=== PATIENT | female | born 1970 | race Caucasian/White ===

== ENCOUNTER 2017-07-28 19:04 | Emergency (ER) | payer BC ==
--- NOTE | 2017-07-28 20:15 | ER Document Report ---
ED Cardiac - General Chief Complaint: Shoulder Pain Stated Complaint: SHOULDER PAIN Time Seen by Provider: 07/28/17 19:58 Mode of Arrival: Ambulatory Information source: Patient - HPI Patient complains to provider of: Chest pain Notes: Patient is here with complaints of right upper chest/shoulder pain. States the pain is been present for the last 6 days. The pain is constant. She states that at times the pain gets much worse. She states that the skin in the upper right chest turned a blue color at times. She denies any shortness of breath. She denies any injury. She states that the pain is worse with touching the area. She denies abdominal pain. She denies nausea, vomiting, diarrhea. Patient does a have a prior history of a blood clotting disorder and states that she has had prior clots in her abdomen. She is currently on Brilinta and Plavix. She also has a history of A. fib and is on metoprolol for that. She denies any fever. She denies any dysuria or hematuria. She denies any numbness , tingling, weakness to the arm. She does report that she took a 16 hour bus ride from [place] to get her to see her son. She has no other complaints at this time. - Related Data Allergies/Adverse Reactions: NSAIDS (Non-Steroidal Anti-Inflamma Allergy (Verified 07/28/17 19:07) steroids Allergy (Uncoded 07/28/17 19:07) Past Medical History - Social History Smoking Status: Current Every Day Smoker Chew tobacco use (# tins/day): No Frequency of alcohol use: None Drug Abuse: None Family History: Reviewed & Not Pertinent Patient has suicidal ideation: No Patient has homicidal ideation: No Renal/ Medical History: Denies: Hx Peritoneal Dialysis Past Surgical History: Reports: Hx Abdominal Surgery - gastric bypass, Hx Appendectomy, Hx Cholecystectomy, Hx Hysterectomy, Hx Orthopedic Surgery - shoulder x2 Review of Systems - Review of Systems -: Yes All other systems reviewed and negative Physical Exam - Vital signs Vitals: Temp Pulse Resp BP Pulse Ox 98.4 F 75 18 152/81 H 98 07/28/17 19:27 07/28/17 19:27 07/28/17 19:27 07/28/17 19:27 07/28/17 19:27 - Notes Notes: GENERAL: alert, cooperative, nontoxic, no distress. HEAD: normocephalic, atraumatic EYES: conjunctiva pink without discharge, no external redness or swelling. EARS: no external swelling, no external redness NOSE: atraumatic, no external swelling MOUTH/THROAT: mucous membranes moist and pink, posterior pharynx without erythema, swelling, exudate. No trismus or drooling. NECK: soft, supple, full range of motion, no meningismus. CHEST: no distress, lungs clear and equal throughout. No wheezing, rales, rhonchi. Tenderness to palpation of the right upper anterior chest just below the clavicle. No redness or swelling identified. No mass. CARDIAC: regular rate, irregular rhythm, no murmur, normal capillary refill, normal pulses. No peripheral edema noted. ABDOMEN: Soft, nontender. BACK: full range of motion, no CVA tenderness. EXTREMITIES: full range of motion of all extremities. No redness, no swelling. NEURO: alert and oriented x 3, no focal deficits, full range of motion of all extremities. PYSCH: appropriate mood, affect. Patient is cooperative. SKIN: pink, warm, dry, no rash. Course - Re-evaluation Re-evalutation: 07/28/17 23:16 The patient is nontoxic appearing with stable vitals. Patient arrives with right upper chest wall pain is been present for the last several days. No shortness of breath. She has a heart score of 2. EKG shows no acute findings. Troponin is negative. Based on her risk factors of clotting disorders with prior DVTs and the fact that she spent several hours on a bus trip here, a CTA of the chest was ordered. This shows no acute findings per the radiologist. The pain is reproducible by palpation it seems to be superficial source of her pain. The patient will be discharged home with instructions to take Tylenol as needed for pain as she is unable to take NSAIDs due to her prior gastric bypass and her antiplatelet medication she takes on a daily basis. She was instructed to follow-up with her primary care doctor if not better in the next week, sooner for worsening pain, high fever, persistent vomiting, or for any further concerns. Symptoms are not consistent with acute ACS and she has a low heart score of 2. The patient is noted to have elevated blood pressure during today's emergency department visit. The patient was informed of this finding. The patient was instructed that this may be related to pre-hypertension and requires further evaluation with a primary care provider. The patient has no hypertensive symptoms at this time. The patient's emergency department workup and current diagnosis were explained to the patient and or family. Follow-up instructions were provided. Medications if prescribed were discussed. Instructions for when to return to the emergency department including specific worrisome symptoms were discussed with the patient and/or family. - Vital Signs Vital signs: Temp Pulse Resp BP Pulse Ox 98.4 F 75 18 152/81 H 98 07/28/17 19:27 07/28/17 19:27 07/28/17 19:27 07/28/17 19:27 07/28/17 19:27 - Laboratory Result Diagrams: 07/28/17 20:25 07/28/17 20:25 Laboratory results interpreted by me: 07/28/17 07/28/17 20:25 20:25 Hgb 11.1 L Hct 34.5 L MCV 78 L MCH 25.0 L RDW 21.9 H Chloride 108 H AST 42 H - Diagnostic Test Radiology reviewed: Image reviewed, Reports reviewed - CT of the chest with no acute findings per the radiologist. - EKG Interpretation by Me EKG shows normal: [place], Intervals, QRS Complexes, ST-T Waves Rate: Normal When compared to previous EKG there are: Other - Bigeminy. Discharge - Discharge Clinical Impression: Right-sided chest wall pain Condition: Stable Disposition: HOME, SELF-CARE Instructions: Chest Pain of Unclear Cause ([facility]), Chest Wall Pain ([facility]) Additional Instructions: Tylenol as needed for pain. Follow-up with your doctor at the next available appointment for recheck. Follow-up sooner for increasing pain, high fever, redness, difficulty breathing, persistent vomiting, or for any further concerns. Your blood pressure was elevated during today's visit. Have this rechecked with your doctor. Apply heat to your left arm where her IV infiltrated in CAT scan. Forms: Elevated Blood Pressure, Smoking Cessation Education Referrals: [facility] [Provider Group] - Follow up as needed
[2017-07-28 20:46] LABS: ABSOLUTE BASOPHILS # (AUTO) 0.1 10^3/uL (0.0-0.2); ABSOLUTE EOSINOPHILS # (AUTO) 0.1 10^3/uL (0.0-0.6); ABSOLUTE LYMPHOCYTES (AUTO) 3.5 10^3/uL (0.5-4.7); ABSOLUTE MONOCYTES (AUTO) 0.7 10^3/uL (0.1-1.4); ABSOLUTE NEUT (AUTO) 5.5 10^3/uL (1.7-8.2); BASOPHILS % (AUTO) 1.4 % (0-2); HEMATOCRIT 34.5 % (36.0-47.0); HEMOGLOBIN 11.1 g/dL (12.0-15.5); LYMPHOCYTES % (AUTO) 35.4 % (13-45); MEAN CORPUSCULAR HGB CONC 32.1 g/dL (32.0-36.0); MEAN CORPUSCULAR VOLUME 78 fl (80-97); MONOCYTES % (AUTO) 6.7 % (3-13); PLATELET COUNT 234 10^3/uL (150-450); RED BLOOD COUNT 4.42 10^6/uL (3.72-5.28); RED CELL DISTRIBUTION WIDTH 21.9 % (11.5-14.0); SEGMENTED NEUTROPHILS % (AUTO) 55.5 % (42-78); TOTAL CELLS COUNTED % (AUTO) 100 %; WHITE BLOOD COUNT 9.9 10^3/uL (4.0-10.5)
[2017-07-28 20:51] LABS: INTERNATIONAL RATION (INR) 0.91; PROTHROMBIN TIME 12.9 SEC (11.4-15.4)
[2017-07-28 21:08] LABS: ALANINE AMINOTRANSFERASE 25 U/L (9-52); ALBUMIN 4.1 g/dL (3.5-5.0); ALKALINE PHOSPHATASE 97 U/L (38-126); ANION GAP 7 (5-19); ASPARTATE AMINO TRANSFERASE 42 U/L (14-36); BILIRUBIN,DIRECT 0.4 mg/dL (0.0-0.4); BILIRUBIN,TOTAL 0.4 mg/dL (0.2-1.3); BLOOD UREA NITROGEN 12 mg/dL (7-20); CALCIUM 8.9 mg/dL (8.4-10.2); CARBON DIOXIDE 28 mmol/L (22-30); CHLORIDE 108 mmol/L (98-107); GLUCOSE 87 mg/dL (75-110); POTASSIUM 3.6 mmol/L (3.6-5.0); TOTAL PROTEIN 7.6 g/dL (6.3-8.2)
--- NOTE | 2017-07-28 22:20 | RADIOLOGY REPORT (SQ) ---
EXAM DESCRIPTION: CTA CHEST COMPLETED DATE/TIME: 07/28/2017 9:46 pm REASON FOR STUDY: right upper cp, hx of dvt COMPARISON: None. TECHNIQUE: CT scan of the chest performed using helical scanning technique with dynamic intravenous contrast injection. Images reviewed with lung, soft tissue and bone windows. Reconstructed coronal and sagittal MPR images reviewed. Additional 3 dimensional post-processing performed to develop Maximal Intensity Projection images (NC P). All images stored on PACS. All CT scanners at this facility use dose modulation, iterative reconstruction, and/or weight based d osing when appropriate to reduce radiation dose to as low as reasonably achievable (ALARA). [facility]: Dose Right [facility]: CareDose [facility]: Dose Right [facility]: Teradose 4D [facility]: Ribbon CONTRAST TYPE AND DOSE: contrast/concentration: Isovue 370.00 mg/ml; Total Contrast Delivered: 138.0 ml; Total Saline Delivered: 45.0 ml Contrast bolus optimized for the pulmonary arteries. Not diagnostic for the aorta. RENAL FUNCTION: BUN 12 creatinine 0.9 RADIATION DOSE: CT Rad equipment meets quality standard of care and radiation dose reduction techniq ues were employed. CTDIvol: 13.9 mGy. DLP: 474 mGy-cm. . LIMITATIONS: None. FINDINGS: LUNGS AND PLEURA: No masses, infiltrates, pneumothorax. No pleural effusions, calcificati ons. AORTA AND GREAT VESSELS: No aneurysm. Contrast bolus not optimized for the aorta. HEART: No pericardial effusion. No significant coronary artery calcifications. PULMONARY ARTERIES: No emboli visualized in the main pulmonary arteries or the segmental branches. HILAR AND MEDIASTINAL STRUCTURES: No identified masses or abnormal nodes. HARDWARE: None in the chest. UPPER ABDOMEN: No significant findings. Limited exam. THYROID AND OTHER SOFT TISSUES: No masses. No adenopathy. BONES: No acute or significant finding. 3D MIPS: Confirm above findings. OTHER: No other significant finding. IMPRESSION: NORMAL CTA OF THE CHEST. NO PULMONARY EMBOLI. COMMENT: Quality ID # [id number]: Final reports with documentation of one or more dose reduction techniques (e.g., Automated exposure control, adjustment of the mA and/or kV according to patient size, use of iterative reconstruction technique) TECHNICAL DOCUMENTATION: JOB ID: [id number] [employer]- All Rights Reserved Reading location - IP/workstation name: [email or web address]
[2017-07-28] MEDS ORDERED: DEXAMETHASONE SOD PHOS INJ 10 MG/1 ML VIAL IV ONE (23:15)
[2017-07-28 23:41] VITALS: BP 120/80
--- NOTE | 2017-07-29 08:15 | EKG REPORT ---
SEVERITY:- ABNORMAL ECG - SINUS RHYTHM SUPRAVENTRICULAR BIGEMINY : Confirmed by: Kennedy Goode MD 29-Jul-2017 08:14:55
== END 2017-07-28 22:30 | disposition home or self-care (01) ==
LOC: ER 19:04
DX: M25.511 Pain in right shoulder (principal); R07.89 Other chest pain; F17.200 Nicotine dependence, unspecified, uncomplicated; Z98.84 Bariatric surgery status; Z90.49 Acquired absence of other specified parts of digestive tract; Z90.710 Acquired absence of both cervix and uterus
CPT/HCPCS: 93005; 99284; 96374; 36415; 85025; 85610; 85730; 80053; 84484; 71275; 93010; J1100

== ENCOUNTER 2017-10-07 11:47 | Inpatient (IN) | payer MEDICARE ==
--- NOTE | 2017-10-07 12:21 | ER Document Report ---
ED Medical Screen (RME) - General Chief Complaint: Shortness Of Breath Stated Complaint: SHORTNESS OF BREATH,NAUSEA Time Seen by Provider: 10/07/17 12:09 Notes: RAPID MEDICAL EVALUATION DISCLOSURE I have seen this patient as part of a Rapid Medical Evaluation and, if applicable, placed any initially appropriate orders. The patient will be seen and fully evaluated, including a full history and physical exam, by a provider ( in Main ED or Fast Track) when a room becomes available. 47-year-old female PMH atrial fibrillation CAD PE here with complaints of extremity swelling in both arms and legs over the past few days as well as shortness of breath that developed this morning. She reports that yesterday her hands were swollen "the size of sausage" but that this has resolved however the leg swelling bilaterally persists. She denies any chest pain discomfort tightness but reports shortness of breath is severe. She denies any prior history of congestive heart failure and does not take any diuretics. She reports being diagnosed with PE back in May despite being on Plavix for the past 2 years. She was diagnosed at hospital in [place] where she lives. She was placed on Brilinta in addition to Plavix and a repeat CTA chest revealed resolution of the PE however she has not been on the Brilinta since the end of July and is back to taking just the Plavix. She is worried she may have another blood clot. EXAM Very subtle and scant bibasilar rales Regular rate with irregular rhythm Lower extremity pitting edema bilaterally Do not appreciate any hand edema TRAVEL OUTSIDE OF THE [place] IN LAST 30 DAYS: No - Related Data Allergies/Adverse Reactions: ciprofloxacin [From Cipro] Allergy (Verified 10/07/17 12:09) NSAIDS (Non-Steroidal Anti-Inflamma Allergy (Verified 10/07/17 12:09) steroids Allergy (Uncoded 10/07/17 12:09) Past Medical History - Social History Chew tobacco use (# tins/day): No Frequency of alcohol use: None Drug Abuse: None - Past Medical History Cardiac Medical History: Reports: Hx Atrial Fibrillation, Hx Heart Attack Renal/ Medical History: Denies: Hx Peritoneal Dialysis Past Surgical History: Reports: Hx Abdominal Surgery - gastric bypass, Hx Appendectomy, Hx Cholecystectomy, Hx Hysterectomy, Hx Orthopedic Surgery - shoulder x2, implant in back Physical Exam - Vital signs Vitals: Temp Pulse Resp BP Pulse Ox 97.4 F 96 22 H 126/91 H 100 10/07/17 12:00 10/07/17 12:00 10/07/17 12:00 10/07/17 12:00 10/07/17 12:00 Course - Vital Signs Vital signs: Temp Pulse Resp BP Pulse Ox 97.4 F 96 22 H 126/91 H 100 10/07/17 12:00 10/07/17 12:00 10/07/17 12:00 10/07/17 12:00 10/07/17 12:00
[2017-10-07 13:35] LABS: ABSOLUTE BASOPHILS # (AUTO) 0.1 10^3/uL (0.0-0.2); ABSOLUTE LYMPHOCYTES (AUTO) 1.6 10^3/uL (0.5-4.7); ABSOLUTE MONOCYTES (AUTO) 0.6 10^3/uL (0.1-1.4); ABSOLUTE NEUT (AUTO) 5.4 10^3/uL (1.7-8.2); BASOPHILS % (AUTO) 0.9 % (0-2); EOSINOPHILS % (AUTO) 0.6 % (0-6); HEMATOCRIT 30.7 % (36.0-47.0); HEMOGLOBIN 9.9 g/dL (12.0-15.5); LYMPHOCYTES % (AUTO) 21.3 % (13-45); MEAN CORPUSCULAR HEMOGLOBIN 24.6 pg (27.0-33.4); MEAN CORPUSCULAR HGB CONC 32.2 g/dL (32.0-36.0); MEAN CORPUSCULAR VOLUME 77 fl (80-97); MONOCYTES % (AUTO) 7.2 % (3-13); PLATELET COUNT 278 10^3/uL (150-450); RED BLOOD COUNT 4.01 10^6/uL (3.72-5.28); RED CELL DISTRIBUTION WIDTH 20.9 % (11.5-14.0); TOTAL CELLS COUNTED % (AUTO) 100 %; WHITE BLOOD COUNT 7.7 10^3/uL (4.0-10.5)
--- NOTE | 2017-10-07 13:40 | ER Document Report ---
ED General - General Chief Complaint: Shortness Of Breath Stated Complaint: SHORTNESS OF BREATH,NAUSEA Time Seen by Provider: 10/07/17 12:09 Mode of Arrival: Ambulatory Information source: Patient TRAVEL OUTSIDE OF THE [place] IN LAST 30 DAYS: No - HPI Notes: 47-year-old female with a past medical history of atrial fibrillation, SD and PE in 2018, pi 2 clotting disorder, bipolar with manic depression who is on anticoagulation of Plavix and recently taken off of Lovenox presents to the emergency room today for complaints of increased shortness of breath with bilateral leg swelling that started approximately 2 days ago after getting up from the flight from [place]. Reports shortness of breath that comes and goes. Patient reports calf pain is bilateral. Denies history of heart failure. Patient does not have a medical provider in the area as she is just visiting from [place]. Patient is currently on Plavix for anticoagulation. Patient is a pack a day smoker for the last 32 years. Denies fevers, chills, chest pain,palpitations, nausea, vomiting, diarrhea, abdominal pain, hematuria, blurred vision, double vision, loss of vision, speech changes, LH, dizziness, syncope, headaches, wheezing, ST, URI, neck pain, weakness, bowel or bladder dysfunction, saddle anesthesia, numbness or tingling in bilateral upper or lower extremities equally, muscle paralysis, weakness in bilateral upper or lower extremities equally or rash. Denies IV drug use. - Related Data Allergies/Adverse Reactions: ciprofloxacin [From Cipro] Allergy (Verified 10/07/17 12:09) NSAIDS (Non-Steroidal Anti-Inflamma Allergy (Verified 10/07/17 12:09) steroids Allergy (Uncoded 10/07/17 12:09) Past Medical History - General Information source: Patient - Social History Smoking Status: Current Every Day Smoker Chew tobacco use (# tins/day): No Frequency of alcohol use: None Drug Abuse: None Family History: Reviewed & Not Pertinent Patient has suicidal ideation: No Patient has homicidal ideation: No - Past Medical History Cardiac Medical History: Reports: Hx Atrial Fibrillation, Hx Heart Attack Renal/ Medical History: Denies: Hx Peritoneal Dialysis Past Surgical History: Reports: Hx Abdominal Surgery - gastric bypass, Hx Appendectomy, Hx Cholecystectomy, Hx Hysterectomy, Hx Orthopedic Surgery - shoulder x2, implant in back Review of Systems - Review of Systems Constitutional: No symptoms reported EENT: No symptoms reported Cardiovascular: See HPI Respiratory: No symptoms reported Gastrointestinal: No symptoms reported Genitourinary: No symptoms reported Female Genitourinary: No symptoms reported Musculoskeletal: No symptoms reported Skin: No symptoms reported Hematologic/Lymphatic: No symptoms reported Neurological/Psychological: No symptoms reported Physical Exam - Vital signs Vitals: Temp Pulse Resp BP Pulse Ox 97.4 F 96 22 H 126/91 H 100 10/07/17 12:00 10/07/17 12:00 10/07/17 12:00 10/07/17 12:00 10/07/17 12:00 - Notes Notes: PHYSICAL EXAMINATION: GENERAL: Chronically ill-appearing, well-nourished and in no acute distress. HEAD: Atraumatic, normocephalic. EYES: Pupils equal round and reactive to light, extraocular movements intact, conjunctiva are normal. ENT: Nares patent, oropharynx clear without exudates. Moist mucous membranes. NECK: Normal range of motion, supple without lymphadenopathy LUNGS: breath sounds clear to auscultation bilaterally and equal. No wheezes rales or rhonchi. HEART: Regular rate and rhythm without murmurs ABDOMEN: Soft, nontender, nondistended abdomen. No guarding, no rebound. No masses appreciated. Female : deferred Musculoskeletal: Normal range of motion, no pitting or edema. No cyanosis. bilaterally calf swelling equally. negative loren's sign. anterior and posterior drawer test negative.Dtr + 2 in BLE. Full motor and sensory function. no ecchymosis or abrasions noted. distal pulses + 2 bilaterally and equally. Bilateral lower extremity without deformity or asymmetry. No STS or edema. No overlying erythema, warmth, discoloration. No lesions or break in the skin integrity. No evidence of compartment syndrome, lymphadenopathy, gangrene. No palpable cords or evidence of thrombophlebitis. IF HAD THROMBO: possible superficial thrombophlebitis with palpable, tender cords. NEUROLOGICAL: Cranial nerves grossly intact. Normal speech, normal gait. Normal sensory, motor exams PSYCH: Normal mood, normal affect. SKIN: Warm, Dry, normal turgor, no rashes or lesions noted. Course - Re-evaluation Re-evalutation: 10/07/17 18:07 47-year-old female presents for evaluation of shortness of breath and bilateral calf swelling. CTA negative for any acute thorax or pneumonia. Lateral venous ultrasound negative for DVT. CBC negative for leukocytosis, BNP 1130, creatinine unremarkable. Patient given 40 mg IVP of Lasix. potassium 3.9. Cardiac enzymes unremarkable. EKG shows non-STEMI. Patient in sinus rhythm with nonspecific T abnormalities. At 1700, patient reports she had sudden onset left-sided chest pain without radiation into the jaw shoulder, patient given 0.4 nitroglycerin 2 with relief. EKG unchanged. Second set of cardiac enzymes negative. Consulted with Dr. Grant Aquino, hospitalist for admission due new onset CHF with chest pain and was somewhat relieved with nitroglycerin. Will be admitted to hospitalist service on the telemetry floor. For further evaluation and management of CHF with unstable angina 10/07/17 18:16 - Vital Signs Vital signs: Temp Pulse Resp BP Pulse Ox 98.7 F 96 16 137/75 H 100 10/07/17 17:31 10/07/17 12:00 10/07/17 17:31 10/07/17 17:31 10/07/17 17:31 - Laboratory Result Diagrams: 10/07/17 13:18 10/07/17 13:18 Laboratory results interpreted by me: 10/07/17 10/07/17 10/07/17 13:18 13:18 13:18 Hgb 9.9 L Hct 30.7 L MCV 77 L MCH 24.6 L RDW 20.9 H Sodium 148.7 H Chloride 110 H NT-Pro-B Natriuret Pep 1130 H Discharge - Discharge Clinical Impression: Chest pain at rest, Unstable angina Congestive heart failure Qualifiers: Heart failure type: unspecified Heart failure chronicity: acute Qualified Code( s): I50.9 - Heart failure, unspecified Condition: Good Disposition: ADMITTED INPATIENT Admitting Provider: Hospitalist - Dr. Grant Aquino Unit Admitted: Telemetry
[2017-10-07 14:08] LABS: INTERNATIONAL RATION (INR) 0.88; PARTIAL THROMBOPLASTIN TIME 29.8 SEC (23.5-35.8); PROTHROMBIN TIME 12.4 SEC (11.4-15.4)
[2017-10-07 14:12] LABS: ANION GAP 9 (5-19); BLOOD UREA NITROGEN 14 mg/dL (7-20); CARBON DIOXIDE 30 mmol/L (22-30); CHLORIDE 110 mmol/L (98-107); GLUCOSE 83 mg/dL (75-110); POTASSIUM 3.9 mmol/L (3.6-5.0); SODIUM 148.7 mmol/L (137-145)
[2017-10-07 14:24] LABS: NT PRO BNP 1130 pg/mL (<125); TROPONIN I < 0.012 ng/mL
--- NOTE | 2017-10-07 14:31 | RADIOLOGY REPORT (SQ) ---
EXAM DESCRIPTION: CTA CHEST COMPLETED DATE/TIME: 10/07/2017 2:12 pm REASON FOR STUDY: SOB; eval PE shortness of breath, history of pulmonary emboli in the past COMPARISON: CT angio chest 07/28/2017 TECHNIQUE: CT scan of the chest performed using helical scanning technique with dynamic intravenous contrast injection. Images reviewed with lung, soft tissue and bone windows. Reconstructed coronal and sagittal MPR images reviewed. Additional 3 dimensional post-processing performed to develop Maximal Intensity Projection images ([place] P). All images stored on PACS. All CT scanners at this facility use dose modulation, iterative reconstruction, and/or weight based d osing when appropriate to reduce radiation dose to as low as reasonably achievable (ALARA). [facility]: Dose Right [facility]: CareDose [facility]: Dose Right [facility]: Teradose 4D [facility]: [email or web address] CONTRAST TYPE AND DOSE: contrast/concentration: Isovue 370.00 mg/ml; Total Contrast Delivered: 80.0 ml; Total Saline Delivered: 90.0 ml Contrast bolus optimized for the pulmonary arteries. Not diagnostic for the aorta. RENAL FUNCTION: None required. The patient is less than 50 years old. RADIATION DOSE: CT Rad equipment meets quality standard of care and radiation dose reduction techniq ues were employed. CTDIvol: 18.3 - 33.1 mGy. DLP: 688 mGy-cm. . LIMITATIONS: None. FINDINGS: LUNGS AND PLEURA: Very mild increased interstitial markings with thickened interlobular se investigation division captain around the periphery of the right and left upper lobe, right middle lobe, and periphery of the ri ght lower lobe. This raises a question of mild interstitial lung disease or sarcoidosis. This patte rn is similar compared to prior CT angio chest 07/28/2017. Findings were discussed with Dr. Medina in the emergency room. No acute infiltrates. No pleural effusion. No pneumothorax. AORTA AND GREAT VESSELS: No aneurysm. Contrast bolus not optimized for the aorta. HEART: No pericardial effusion. No significant coronary artery calcifications. PULMONARY ARTERIES: No emboli visualized in the main pulmonary arteries or the segmental branches. HILAR AND MEDIASTINAL STRUCTURES: There are mildly enlarged right hilar lymph nodes, 1.7 x 1.4 cm in size and 1.8 x 0.9 cm in size. HARDWARE: Dorsal column stimulator over the mid thoracic spine. UPPER ABDOMEN: Post gastric bypass THYROID AND OTHER SOFT TISSUES: No masses. No adenopathy. BONES: No acute or significant finding. 3D MIPS: Confirm above findings. OTHER: No other significant finding. IMPRESSION: No CT angio evidence of acute pulmonary emboli. No acute infiltrates. Mild increased interstitial markings right greater than left with mild right hilar adenopathy. Quest ion sarcoidosis or other interstitial lung disease. COMMENT: Quality ID # [id number]: Final reports with documentation of one or more dose reduction techniques (e.g., Automated exposure control, adjustment of the mA and/or kV according to patient size, use of iterative reconstruction technique) TECHNICAL DOCUMENTATION: JOB ID: [id number] [employer]- All Rights Reserved Reading location - IP/workstation name: [email or web address]
[2017-10-07] MEDS ORDERED: FUROSEMIDE INJ/PF 40 MG/4 ML SDV IV ONE (15:54)
--- NOTE | 2017-10-07 16:00 | RADIOLOGY REPORT (SQ) ---
EXAM DESCRIPTION: VENOUS BILATERAL LOWER COMPLETED DATE/TIME: 10/07/2017 3:50 pm REASON FOR STUDY: calf swelling/tenderness,+hx of PE,clotting disord COMPARISON: None. TECHNIQUE: Dynamic and static bender scale and color images acquired of both lower extremity venous sy stems. Selected spectral images acquired with additional compression and augmentation maneuvers. Imag es stored on PACS. LIMITATIONS: None. FINDINGS: RIGHT LEG COMMON FEMORAL AND FEMORAL: Normal phasicity, compression and augmentation. No visualized echogenic m aterial on bender scale. No defects on color images. POPLITEAL: Normal compression and augmentation. No visualized echogenic material on bender scale. No de fects on color images. CALF VESSELS: Normal compression and augmentation. No visualized echogenic material on bender scale. No defects on color image. GSV AND SSV: Normal compression. No visualized echogenic material on bender scale. No defects on color images. ANY DEEP VENOUS INSUFFICIENCY: No ANY EVIDENCE OF POPLITEAL CYST: No. OTHER: No other significant finding. LEFT LEG COMMON FEMORAL AND FEMORAL: Normal phasicity, compression and augmentation. No visualized echogenic m aterial on bender scale. No defects on color images. POPLITEAL: Normal compression and augmentation. No visualized echogenic material on bender scale. No de fects on color images. CALF VESSELS: Normal compression and augmentation. No visualized echogenic material on bender scale. No defects on color images. GSV AND SSV: Normal compression. No visualized echogenic material on bender scale. No defects on color images. ANY DEEP VENOUS INSUFFICIENCY: No ANY EVIDENCE POPLITEAL CYST: No. OTHER: No other significant finding. IMPRESSION: NO EVIDENCE DVT OR SVT IN EITHER LEG. TECHNICAL DOCUMENTATION: JOB ID: [id number] [employer]- All Rights Reserved Reading location - IP/workstation name: [email or web address]
[2017-10-07] MEDS: NITROGLYCERIN 0.4 MG/TAB 25 TAB/BOTTLE SL PRN ×2 (16:19→16:25)
[2017-10-07] MEDS ORDERED: MORPHINE SULFATE 10 MG/ML INJ IV ONE (17:06)
[2017-10-07] MEDS ORDERED: NITROGLYCERIN 0.4 MG/TAB 25 TAB/BOTTLE SL PRN (17:06)
[2017-10-07 17:17] LABS: CREATINE KINASE MB 0.77 ng/mL (<4.55); TROPONIN I < 0.012 ng/mL
[2017-10-07] MEDS ORDERED: MAG HYDROX/AL HYDROX/SIMETH SUSP 30 ML UDCUP PO PRN (17:31)
[2017-10-07] MEDS ORDERED: IPRATROPIUM/ALBUTEROL 0.5-2.5 MG/3 ML AMPUL NEB PRN (17:31)
[2017-10-07] MEDS ORDERED: ONDANSETRON HCL INJ/PF 4 MG/2 ML SDV IV PRN (17:31)
[2017-10-07] MEDS ORDERED: MAGNESIUM HYDROXIDE SUSP 30 ML UDCUP PO PRN (17:31)
[2017-10-07] MEDS ORDERED: NITROGLYCERIN 2% OINTMENT 1 GM PACKET TP ONE (18:00)
--- NOTE | 2017-10-07 18:27 | PDOC H&P ---
History of Present Illness Admission Date/PCP: 10/07/17 17:55 Patient complains of: Leg swelling and difficulty breathing for a few days History of Present Illness: ANA LAURA DOTSON is a 47 year old female This patient presents to the emergency room with history of bilateral leg swelling. She states she flew here from [place] and noticed her legs to be swollen which she thought was due to her flight. She however says that she started having difficulty breathing also and so decided to come to the emergency room to get it checked out. While in the emergency room she started having some chest pain and had difficulty laying down when she was trying to have a CAT scan done. She was grabbing the side of the chest saying that this chest pain was right there however about the time of my exam she was chest pain- free. Patient states she has a prior history of coronary artery disease. She states she had a heart attack 10 years ago and had another one this May. She states that she was put on Plavix however she states she never had a stress test done and has never had a cardiac cath done. Patient's history is a little bit disjointed and its little difficult to really follow was going on here. She however was found to have an elevated BNP.. She was given some GI cocktail which appeared to have given her some relief when I stated earlier this patient' s story is a little disjointed so it is hard to separate the facts from all the extra stuff. He is a prior history of atrial fibrillation and says she is on metoprolol but has never been on an anticoagulant She does have a history of bipolar disorder which may explain some of her storytelling. Patient definitely does have some abnormal EKG findings including premature atrial complexes and PVCs as well as nonspecific T-wave changes. 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 [place] Past Medical History Cardiac Medical History: Reports: Atrial Fibrillation, Myocardial Infarction Psychiatric Medical History: Reports: Bipolar Disorder Past Surgical History Past Surgical History: Reports: Appendectomy, Cholecystectomy, Hysterectomy, Orthopedic Surgery - shoulder x2, implant in back Social History Smoking Status: Current Every Day Smoker - Advance Directive Resuscitation Status: Full Code Family History Family History: Reviewed & Not Pertinent Parental Family History Reviewed: Yes Children Family History Reviewed: Yes Sibling(s) Family History Reviewed.: Yes Medication/Allergy Allergies/Adverse Reactions: ciprofloxacin [From Cipro] Allergy (Verified 10/07/17 12:09) NSAIDS (Non-Steroidal Anti-Inflamma Allergy (Verified 10/07/17 12:09) steroids Allergy (Uncoded 10/07/17 12:09) Review of Systems Constitutional: ABSENT: chills, fever(s), headache(s), weight gain, weight loss Eyes: ABSENT: visual disturbances Ears: ABSENT: hearing changes Cardiovascular: PRESENT: chest pain, edema, orthropnea, palpitations. ABSENT: dyspnea on exertion Respiratory: PRESENT: dyspnea. ABSENT: cough, hemoptysis, sputum Gastrointestinal: ABSENT: abdominal pain, constipation, diarrhea, hematemesis, hematochezia, nausea, vomiting Genitourinary: ABSENT: dysuria, hematuria Musculoskeletal: ABSENT: joint swelling Integumentary: ABSENT: rash, wounds Neurological: ABSENT: abnormal gait, abnormal speech, confusion, dizziness, focal weakness, syncope Psychiatric: ABSENT: anxiety, depression, homidical ideation, suicidal ideation Endocrine: ABSENT: cold intolerance, heat intolerance, polydipsia, polyuria Hematologic/Lymphatic: ABSENT: easy bleeding, easy bruising Physical Exam Vital Signs: Temp Pulse Resp BP Pulse Ox 98.7 F 96 16 137/75 H 100 10/07/17 17:31 10/07/17 12:00 10/07/17 17:31 10/07/17 17:31 10/07/17 17:31 General appearance: PRESENT: no acute distress, well-developed, well-nourished Head exam: PRESENT: atraumatic, normocephalic Eye exam: PRESENT: conjunctiva pink, EOMI, PERRLA. ABSENT: scleral icterus Ear exam: PRESENT: normal external ear exam Mouth exam: PRESENT: moist, tongue midline Neck exam: ABSENT: carotid bruit, JVD, lymphadenopathy, thyromegaly Respiratory exam: PRESENT: clear to auscultation [place]. ABSENT: rales, rhonchi, wheezes Cardiovascular exam: PRESENT: irregular rhythm, +S1, +S2. ABSENT: diastolic murmur, rubs, systolic murmur Pulses: PRESENT: normal dorsalis pedis pul Vascular exam: PRESENT: normal capillary refill GI/Abdominal exam: PRESENT: normal bowel sounds, soft. ABSENT: distended, guarding, mass, organolmegaly, rebound, tenderness Rectal exam: PRESENT: deferred Extremities exam: PRESENT: full ROM. ABSENT: calf tenderness, clubbing, pedal edema Neurological exam: PRESENT: alert, awake, oriented to person, oriented to place , oriented to time, oriented to situation, CN II-XII grossly intact. ABSENT: motor sensory deficit Psychiatric exam: PRESENT: appropriate affect. ABSENT: homicidal ideation, suicidal ideation Skin exam: PRESENT: dry, intact, warm. ABSENT: cyanosis, rash Results Laboratory Results: Laboratory 10/07/17 10/07/17 10/07/17 13:18 13:18 13:18 WBC 7.7 RBC 4.01 Hgb 9.9 L Hct 30.7 L MCV 77 L MCH 24.6 L MCHC 32.2 RDW 20.9 H Plt Count 278 Seg Neutrophils % 70.0 Lymphocytes % 21.3 Monocytes % 7.2 Eosinophils % 0.6 Basophils % 0.9 Absolute Neutrophils 5.4 Absolute Lymphocytes 1.6 Absolute Monocytes 0.6 Absolute Eosinophils 0.0 Absolute Basophils 0.1 PT INR APTT Sodium 148.7 H Potassium 3.9 Chloride 110 H Carbon Dioxide 30 Anion Gap 9 BUN 14 Creatinine 0.75 Est GFR ( Amer) > 60 Est GFR (Non-Af Amer) > 60 Glucose 83 Calcium 9.0 Creatine Kinase CK-MB (CK-2) Troponin I < 0.012 NT-Pro-B Natriuret Pep 1130 H 10/07/17 10/07/17 10/07/17 13:18 13:18 13:18 WBC RBC Hgb Hct MCV MCH MCHC RDW Plt Count Seg Neutrophils % Lymphocytes % Monocytes % Eosinophils % Basophils % Absolute Neutrophils Absolute Lymphocytes Absolute Monocytes Absolute Eosinophils Absolute Basophils PT 12.4 INR 0.88 APTT 29.8 Sodium Potassium Chloride Carbon Dioxide Anion Gap BUN Creatinine Est GFR ( Amer) Est GFR (Non-Af Amer) Glucose Calcium Creatine Kinase 95 CK-MB (CK-2) 0.89 Troponin I NT-Pro-B Natriuret Pep 10/07/17 10/07/17 16:32 16:32 WBC RBC Hgb Hct MCV MCH MCHC RDW Plt Count Seg Neutrophils % Lymphocytes % Monocytes % Eosinophils % Basophils % Absolute Neutrophils Absolute Lymphocytes Absolute Monocytes Absolute Eosinophils Absolute Basophils PT INR APTT Sodium Potassium Chloride Carbon Dioxide Anion Gap BUN Creatinine Est GFR ( Amer) Est GFR (Non-Af Amer) Glucose Calcium Creatine Kinase 80 CK-MB (CK-2) 0.77 Troponin I < 0.012 NT-Pro-B Natriuret Pep Impressions: Chest/Abdomen CTA 10/07/17 12:16 IMPRESSION: No CT angio evidence of acute pulmonary emboli. No acute infiltrates. Mild increased interstitial markings right greater than left with mild right hilar adenopathy. Question sarcoidosis or other interstitial lung disease. Venous Doppler Study 10/07/17 13:25 IMPRESSION: NO EVIDENCE DVT OR SVT IN EITHER LEG. Assessment & Plan - Diagnosis (1) Congestive heart failure Qualifiers: Heart failure type: unspecified Heart failure chronicity: acute Qualified Code(s): I50.9 - Heart failure, unspecified Plan: A two-dimensional echocardiogram will be ordered and cardiology evaluation. Patient will be placed on Nitropaste as well as Lasix in the interim (2) Abnormal EKG Is this a current diagnosis for this admission?: Yes Plan: Premature atrial contractions as well as PVCs. Patient will be monitored on telemetry floor. A cardiac consultation will be obtained (3) Bipolar disorder Is this a current diagnosis for this admission?: Yes Plan: Details unknown however this was self-reported by patient herself (4) Atrial fibrillation Qualifiers: Atrial fibrillation type: paroxysmal Qualified Code(s): I48.0 - Paroxysmal atrial fibrillation Is this a current diagnosis for this admission?: Yes Plan: According to patient she does have a history of atrial fibrillation currently on no anticoagulant (5) Chest pain at rest Is this a current diagnosis for this admission?: Yes Plan: This is somewhat atypical and she may will need to stress test however will defer that for now. Serial cardiac enzymes will be obtained and will have cardiology evaluation to decide what the next step (6) Anemia Qualifiers: Anemia type: unspecified type Qualified Code(s): D64.9 - Anemia, unspecified Is this a current diagnosis for this admission?: Yes Plan: We will obtain iron studies - Time Time Spent: 30 to 50 Minutes Medications reviewed and adjusted accordingly: Yes Anticipated discharge: Home Within: within 72 hours - Inpatient Certification Based on my medical assessment, after consideration of the patient's comorbidities, presenting symptoms, or acuity I expect that the services needed warrant INPATIENT care.: Yes Medical Necessity: Need For Continuous Telemetry Monitoring
[2017-10-07] MEDS ORDERED: ENOXAPARIN SODIUM INJ 40 MG/0.4 ML DISP.SYRIN SUBCUT ONE (18:30)
--- NOTE | 2017-10-07 18:40 | EKG REPORT ---
SEVERITY:- ABNORMAL ECG - SINUS RHYTHM MULTIPLE ATRIAL PREMATURE COMPLEXES PROBABLE LEFT ATRIAL ABNORMALITY NONSPECIFIC T ABNORMALITIES, LATERAL LEADS : Confirmed by: Kennedy Goode MD 07-Oct-2017 18:39:30
--- NOTE | 2017-10-07 18:40 | EKG REPORT ---
SEVERITY:- ABNORMAL ECG - SINUS RHYTHM PACS AND PVCS SINUS PAUSE/ARREST WITH ATRIAL ESCAPE PROBABLE LEFT ATRIAL ABNORMALITY : Confirmed by: Kennedy Goode MD 07-Oct-2017 18:39:15
--- NOTE | 2017-10-07 18:40 | EKG REPORT ---
SEVERITY:- ABNORMAL ECG - SINUS RHYTHM MULTIPLE ATRIAL PREMATURE COMPLEXES : Confirmed by: Kennedy Goode MD 07-Oct-2017 18:39:41
[2017-10-07] MEDS ORDERED: FUROSEMIDE INJ/PF 40 MG/4 ML SDV IV SCH (22:00)
[2017-10-07] MEDS: OXYCODONE-ACETAMINOPHEN 5-325 MG TABLET PO PRN (23:02)
[2017-10-08] MEDS: ACETAMINOPHEN 325 MG TABLET PO PRN ×3 (00:03→12:28)
[2017-10-08 05:08] LABS: ABSOLUTE RETICS # 0.054 10^6/uL (0.028-0.122); RETICULOCYTE COUNT (AUTO) 1.43 % (0.66-2.85)
[2017-10-08 05:22] LABS: IRON(TIBC) 21.1 ug/dL (37-170)
[2017-10-08 05:59] LABS: FERRITIN 6.61 ng/mL (6.2-137.0)
[2017-10-08 06:30] LABS: FOLATE 4.13 ng/mL (>2.76)
[2017-10-08] MEDS: OXYCODONE-ACETAMINOPHEN 5-325 MG TABLET PO PRN ×3 (07:20→20:31)
[2017-10-08] MEDS: FUROSEMIDE INJ/PF 40 MG/4 ML SDV IV SCH ×2 (09:31→20:31)
[2017-10-08] MEDS ORDERED: ENOXAPARIN SODIUM INJ 40 MG/0.4 ML DISP.SYRIN SUBCUT SCH (10:00)
--- NOTE | 2017-10-08 12:57 | PDOC CONSULTATION ---
Consultation Consult Date: 10/07/17 Attending physician:: WAQAS CRAWFORD Consult reason:: Chest pain and dyspnea History of Present Illness Admission Date/PCP: 10/07/17 17:55 Patient complains of: Shortness of breath and pedal edema History of Present Illness: ANA LAURA DOTSON is a 47 year old female presents to the emergency room with history of bilateral leg swelling. She states she flew here from [place] and noticed her legs to be swollen which she thought was due to her flight. She however says that she started having difficulty breathing also and so decided to come to the emergency room to get it checked out. While in the emergency room she started having some chest pain and had difficulty laying down when she was trying to have a CAT scan done. She was grabbing the side of the chest saying that this chest pain was right there however about the time of my exam she was chest pain-free. Patient states she has a prior history of coronary artery disease. She states she had a heart attack 10 years ago and had another one this May. She states that she was put on Plavix however she states she never had a stress test done and has never had a cardiac cath done. Patient's history is a little bit disjointed and its little difficult to really follow was going on here. She however was found to have an elevated BNP.. She was given some GI cocktail which appeared to have given her some relief when I stated earlier this patient's story is a little disjointed so it is hard to separate the facts from all the extra stuff. He is a prior history of atrial fibrillation and says she is on metoprolol but has never been on an anticoagulant She does have a history of bipolar disorder which may explain some of her storytelling. Patient definitely does have some abnormal EKG findings including premature atrial complexes and PVCs as well as nonspecific T-wave changes. 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 This history obtained by the hospitalist was reviewed with the patient and confirmed. Patient's [id number] also at bedside. Patient actually flew in from [facility] to be with her son and [id number]. She has plans to stay for about a month. Patient admits to being somewhat noncompliant with medications. Past Medical History Cardiac Medical History: Reports: Atrial Fibrillation, Myocardial Infarction Psychiatric Medical History: Reports: Bipolar Disorder Past Surgical History Past Surgical History: Reports: Appendectomy, Cholecystectomy, Hysterectomy, Orthopedic Surgery - shoulder x2, implant in back Social History Information Source: Patient Smoking Status: Current Every Day Smoker - Advance Directive Resuscitation Status: Full Code Surrogate healthcare decision maker:: Patient's son is the surrogate decision-maker. Family History Family History: Hypertension Parental Family History Reviewed: Yes Children Family History Reviewed: Yes Sibling(s) Family History Reviewed.: Yes Medication/Allergy Home Medications: Alprazolam [Xanax] 2 mg PO Q8HP PRN 10/07/17 Gabapentin [Neurontin 400 mg Capsule] 400 mg PO Q12 10/07/17 Hydrocodone/Acetaminophen [Hydrocodone-Acetamin 5-325 mg] 1 tab PO Q12 10/07/17 Metoprolol Tartrate [Lopressor 25 mg Tablet] 25 mg PO Q12 10/07/17 Mirtazapine [Remeron] 30 mg PO QHS 10/07/17 Omeprazole 40 mg PO QHS 10/07/17 Pantoprazole Sodium [Protonix] 40 mg PO DAILY 10/07/17 Zolpidem Tartrate [Ambien] 10 mg PO HSP PRN 10/07/17 Allergies/Adverse Reactions: ciprofloxacin [From Cipro] Allergy (Verified 10/07/17 12:09) NSAIDS (Non-Steroidal Anti-Inflamma Allergy (Verified 10/07/17 12:09) steroids Allergy (Uncoded 10/07/17 12:09) Review of Systems Review of Systems: Please see history of present illness and past medical history as wall. Constitutional: No fever or chills reported. Head : No recent chronic headaches, recent head injury. Eyes: No recent eye pain, diplopia, redness, discharge, acute visual changes. Ears: No recent chronic ear pain, acute hearing loss, ear discharge. Oral cavity: No recent ulcerations, bleeding, oral cavity discomfort. Neck: No recent acute neck pain reported. Hematologic: No recent easy bruising or bleeding. Lymphatic: No recent lymph node enlargement reported. Cardiovascular system review: See history of present illness. Respiratory system review: No hemoptysis or blood clots in the lungs reported. Pedal edema and shortness of breath on exertion Gastrointestinal system review: Negative for any recent acute hematemesis, melena. Genitourinary system review: No recent acute or chronic hematuria, flank pain, UTI etc. reported. Skin system review: Negative for any recent abnormal bruising, no rash, no pruritus reported. Neurologic: No prior history of strokes, mini strokes, seizure disorder. Psychologic: No history of major psychosis or major depression reported. Describes history of minor depression. Musculoskeletal: Minor aches and pains reported. No acute joint swelling reported. Endocrine: No recent polyuria, polydipsia, recent heat or cold intolerance. Physical Exam Vital Signs: Temp Pulse Resp BP Pulse Ox 98.6 F 96 24 H 143/95 H 98 10/07/17 19:49 10/07/17 12:00 10/07/17 19:32 10/07/17 19:15 10/07/17 19:32 Results EKG Comments: Twelve-lead EKG shows sinus rhythm, no acute ST-T wave changes noted but frequent APCs and VPCs noted. Impressions: Chest/Abdomen CTA 10/07/17 12:16 IMPRESSION: No CT angio evidence of acute pulmonary emboli. No acute infiltrates. Mild increased interstitial markings right greater than left with mild right hilar adenopathy. Question sarcoidosis or other interstitial lung disease. Venous Doppler Study 10/07/17 13:25 IMPRESSION: NO EVIDENCE DVT OR SVT IN EITHER LEG. Assessment & Plan - Diagnosis (1) Chest pain at rest Is this a current diagnosis for this admission?: Yes (3) Coronary artery disease Qualifiers: Coronary Disease-Associated Artery/Lesion type: [place] artery [place] vs. transplanted heart: [place] heart Is this a current diagnosis for this admission?: Yes (4) Obesity Qualifiers: Obesity type: unspecified obesity type Obesity classification: unspecified obesity classification Is this a current diagnosis for this admission?: Yes (5) Abnormal EKG Is this a current diagnosis for this admission?: Yes (6) Anemia Qualifiers: Anemia type: unspecified type Qualified Code(s): D64.9 - Anemia, unspecified Is this a current diagnosis for this admission?: Yes (7) Congestive heart failure Qualifiers: Heart failure type: unspecified Heart failure chronicity: acute Qualified Code(s): I50.9 - Heart failure, unspecified Is this a current diagnosis for this admission?: Yes - Notes Notes: Twelve-lead EKG shows sinus rhythm with increased APCs and VPCs. No acute ST-T wave changes noted. Chest pain: Cardiac enzymes so far has been negative. Electrocardiogram did not show any definitive ST segment changes. Multiple differential diagnoses exist in this patient. Patient has known history of CAD and prior UT. Feel that it would need to be evaluated further. Discussed evaluation to assess this. In this regard risk benefits of nuclear stress test and other alternative processes were discussed in detail. The patient prefers to undergo nuclear stress test. Congestive heart failure: Most likely related to diastolic dysfunction but currently unspecified. This is most likely also acute on chronic. A 2D echocardiogram has been ordered. Agree with IV diuretics for the time being. Will adjust medication further after echo report. CAD: Recommend antiplatelet statin and beta-keiko therapy. To be gradually reinstituted during this admission. Obesity: Patient has been encouraged in weight loss. Abnormal EKG: To be evaluated with a 2D echo and nuclear stress test. Corrected needle electrolyte problem because of increased ectopy. Anemia: Hemoglobin is low. To be evaluated further by the hospitalist or can be evaluated as an outpatient. - Time Time Spent: 30 to 50 Minutes - CODE STATUS was discussed, patient remains full code. Surrogate decision-maker patient's son Rylan Flowers. Multiple medical problems were addressed. More than 50% of the time spent coordinating care, discussing management plans with involved caregivers. Management plans discussed with involved personnels. Medical decision making was of moderate to high complexity, patient's has multiple comorbidities. Medications reviewed and adjusted accordingly: Yes
--- NOTE | 2017-10-08 14:16 | PDOC PROGRESS REPORT ---
Subjective Progress Note for:: 10/08/17 Subjective:: I seen patient propped up in bed. She is awake alert and oriented and she is in mild respiratory distress. If she remains stable, maybe she is a potential discharge for tomorrow Reason For Visit: ATYPICAL CHEST PAIN,CHF Physical Exam Vital Signs: Temp Pulse Resp BP Pulse Ox 98.1 F 52 L 18 127/63 H 98 10/08/17 07:18 10/08/17 12:30 10/08/17 12:30 10/08/17 07:18 10/08/17 12:30 Intake & Output 10/07/17 10/08/17 10/09/17 06:59 06:59 06:59 Intake Total 1285 Balance 1285 Weight 95.9 kg General appearance: PRESENT: mild distress Head exam: PRESENT: atraumatic, normocephalic Eye exam: PRESENT: conjunctiva pink, EOMI, PERRLA. ABSENT: scleral icterus Respiratory exam: PRESENT: crackles - Fine crackles at the lung bases Cardiovascular exam: PRESENT: irregular rhythm GI/Abdominal exam: PRESENT: normal bowel sounds, soft. ABSENT: distended, guarding, mass, organolmegaly, rebound, tenderness Extremities exam: PRESENT: +2 edema Neurological exam: PRESENT: alert, awake, oriented to time, oriented to situation Psychiatric exam: PRESENT: appropriate affect, normal mood. ABSENT: homicidal ideation, suicidal ideation Results Laboratory Results: 10/08/17 10/08/17 04:30 04:30 Retic Count (auto) 1.43 Absolute Retic 0.054 Iron 21.1 L TIBC 431 % Saturation 5 Ferritin 6.61 Vitamin B12 215.0 L Folate 4.13 10/08/17 04:30 Troponin I < 0.012 Impressions: Chest/Abdomen CTA 10/07/17 12:16 IMPRESSION: No CT angio evidence of acute pulmonary emboli. No acute infiltrates. Mild increased interstitial markings right greater than left with mild right hilar adenopathy. Question sarcoidosis or other interstitial lung disease. Venous Doppler Study 10/07/17 13:25 IMPRESSION: NO EVIDENCE DVT OR SVT IN EITHER LEG. Assessment & Plan - Diagnosis (1) Abnormal EKG Is this a current diagnosis for this admission?: Yes Plan: Patient is being followed by Dr. Reese (2) Bipolar disorder Qualifiers: Active/Remission status: in remission of unspecified degree Qualified Code( s): F31.70 - Bipolar disorder, currently in remission, most recent episode unspecified Is this a current diagnosis for this admission?: Yes Plan: Continue her home medication (3) Chest pain at rest Is this a current diagnosis for this admission?: Yes Plan: Has resolved (4) Congestive heart failure Qualifiers: Heart failure type: unspecified Heart failure chronicity: acute Qualified Code(s): I50.9 - Heart failure, unspecified Is this a current diagnosis for this admission?: Yes Plan: Patient has been on Lasix and cardiac protective medications. (5) Coronary artery disease Qualifiers: Coronary Disease-Associated Artery/Lesion type: [place] artery [place] vs. transplanted heart: [place] heart Is this a current diagnosis for this admission?: Yes Plan: Currently stable. Continue her home medications. - Time Time Spent with patient: 35 or more minutes
[2017-10-08] MEDS ORDERED: CARVEDILOL 12.5 MG TABLET PO ONE (15:00)
[2017-10-08] MEDS ORDERED: LOSARTAN POTASSIUM 25 MG TABLET PO ONE (15:00)
[2017-10-08] MEDS: LOSARTAN POTASSIUM 25 MG TABLET PO SCH (17:46)
[2017-10-08] MEDS: APIXABAN 5 MG TABLET PO SCH (17:46)
[2017-10-08] MEDS: CARVEDILOL 12.5 MG TABLET PO SCH (17:46)
[2017-10-08] MEDS ORDERED: ALPRAZOLAM 0.5 MG TABLET PO PRN (18:05)
--- NOTE | 2017-10-08 19:12 | XCELERA REPORT ---
[address] [address] Transthoracic Echocardiogram Report Name: ANA LAURA DOTSON Age: 47 yrs Gender: Female : 1970 Patient Status: Inpatient Patient Location: [address] [place] [address] Study Date: 10/08/2017 09:56 AM Height: 65 in Weight: 216 lb BSA: 2.0 m2 Procedure: A complete two-dimensional transthoracic echocardiogram was performed (2D, M-mode, spectral and color flow Doppler). The study was technically adequate with some images being suboptimal in quality. Reason For Study: CHF Ordering Physician: SHINE MURGUIA Performed By: Diane Pozo Interpretation Summary The left ventricular ejection fraction is normal. There is borderline concentric left ventricular hypertrophy. The left ventricle is grossly normal size. Doppler measurements suggest pseudonormalized left ventricular relaxation, which is associated with grade II/IV or mild to moderate diastolic dysfunction Wall motion cannot be accurately commented on, but no definite regional wall motion abnormalities noted. The right ventricular systolic function is normal. The left atrium is mildly dilated. The right atrium is normal in size There is a trace amount of mitral regurgitation There is no mitral valve stenosis. No aortic regurgitation is present. There is no aortic valve stenosis There is a trace to mild amount of tricuspid regurgitation Right ventricular systolic pressure is estimated to be elevated at 30- 40mmHg. There is mild pulmonary hypertension by echo The aortic root is not well visualized but is probably normal size. The inferior vena cava appeared normal and decreased > 50% with respiration (RAP 5-10 mmHg) There is no pericardial effusion. MMode/2D Measurements & Calculations RVDd: 2.3 cm LVIDd: 5.7 cm FS: 35.8 % Ao root diam: 3.5 cm IVSd: 0.89 cm LVIDs: 3.7 cm EDV(Teich): 162.1 ml LVPWd: 0.88 cmESV(Teich): 57.5 ml Ao root area: 9.4 cm2 EF(Teich): 64.6 % LA dimension: 3.8 cm LVOT diam: 2.0 cm LVOT area: 3.2 cm2 Doppler Measurements & Calculations MV E max amanda: MV P1/2t max amanda: Ao V2 max: LV V1 max P.6 cm/sec 108.6 cm/sec 125.0 cm/sec 5.5 mmHg MV A max amanda: MV P1/2t: 68.4 msec Ao max PG: LV V1 max: 43.4 cm/sec MVA(P1/2t): 3.2 cm2 6.2 mmHg 116.8 cm/sec MV E/A: 2.5 MV dec slope: SAMMI(V,D): 3.0 cm2 465.1 cm/sec2 PA V2 max: TR max amanda: 79.5 cm/sec 271.5 cm/sec PA max PG: TR max P.5 mmHg 2.5 mmHg Left Ventricle The left ventricle is grossly normal size. There is borderline concentric left ventricular hypertrophy. The left ventricular ejection fraction is normal. Doppler measurements suggest pseudonormalized left ventricular relaxation, which is associated with grade II/IV or mild to moderate diastolic dysfunction. Wall motion cannot be accurately commented on, but no definite regional wall motion abnormalities noted. Right Ventricle The right ventricle is grossly normal size. There is normal right ventricular wall thickness. The right ventricular systolic function is normal. Atria The right atrium is normal in size. The left atrium is mildly dilated. Interarterial septum not well visualized and not well dopplered. Cannot comment on ASD/PFO presence. Mitral Valve The mitral valve is grossly normal. There is no mitral valve stenosis. There is a trace amount of mitral regurgitation. Aortic Valve The aortic valve is grossly normal. There is no aortic valve stenosis. No aortic regurgitation is present. Tricuspid Valve The tricuspid valve is not well visualized, but is grossly normal. There is no tricuspid stenosis. There is a trace to mild amount of tricuspid regurgitation. Right ventricular systolic pressure is estimated to be elevated at 30-40mmHg. There is mild pulmonary hypertension by echo. Pulmonic Valve The pulmonic valve is not well visualized. Great Vessels The aortic root is not well visualized but is probably normal size. The inferior vena cava appeared normal and decreased > 50% with respiration (RAP 5-10 mmHg). Effusions There is no pericardial effusion. : SHINE MURGUIA > Mervat Reese
[2017-10-08] MEDS ORDERED: CARVEDILOL 12.5 MG TABLET PO SCH (22:00)
[2017-10-08] MEDS ORDERED: LOSARTAN POTASSIUM 25 MG TABLET PO SCH (22:00)
[2017-10-09 05:57] LABS: CHOLESTEROL 231.63 mg/dL (0-200); TRIGLYCERIDES 124 mg/dL (<150)
[2017-10-09 06:08] LABS: DIRECT LDL 141 mg/dL (<100)
[2017-10-09] MEDS: OXYCODONE-ACETAMINOPHEN 5-325 MG TABLET PO PRN ×2 (06:14→13:07)
[2017-10-09] MEDS: LOSARTAN POTASSIUM 25 MG TABLET PO SCH (06:15)
[2017-10-09] MEDS: CARVEDILOL 12.5 MG TABLET PO SCH (06:15)
[2017-10-09] MEDS: FUROSEMIDE INJ/PF 40 MG/4 ML SDV IV SCH (09:24)
[2017-10-09] MEDS: APIXABAN 5 MG TABLET PO SCH (09:24)
[2017-10-09] MEDS: ACETAMINOPHEN 325 MG TABLET PO PRN (11:10)
--- NOTE | 2017-10-09 11:11 | PDOC PROGRESS REPORT ---
Subjective Progress Note for:: 10/08/17 Subjective:: Patient seems to be doing better with gradual improvement. Pt is denying any chest arm or neck discomfort. Patient denying any PND, orthopnea. Patient denied any sustained palpitations, dizziness, syncope, near syncope. Patient denying any fever chills. Patient denying any other significant discomfort. Patient is maintaining sinus rhythm. Review of systems: Rest review of systems negative. Medications: Medications have been reviewed. Reason For Visit: ATYPICAL CHEST PAIN,CHF Physical Exam Vital Signs: Temp Pulse Resp BP Pulse Ox 98.1 F 52 L 18 127/63 H 98 10/08/17 07:18 10/08/17 12:30 10/08/17 12:30 10/08/17 07:18 10/08/17 12:30 Intake & Output 10/07/17 10/08/17 10/09/17 06:59 06:59 06:59 Intake Total 1285 Balance 1285 Weight 95.9 kg Exam: GENERAL: well-nourished and in no acute distress. Alert and oriented x3 HEAD: Atraumatic, normocephalic. EYES: Pupils equal round and reactive to light, extraocular movements intact, sclera anicteric, conjunctiva are normal. ENT: TMs normal, nares patent, oropharynx clear without exudates. Moist mucous membranes. No oral ulcerations or bleeding gums noted NECK: supple without lymphadenopathy. Trachea is central. No cervical or axillary lymphadenopathy noted. Carotids are 2+, JVD WNL LUNGS: Respiration seems nonlabored, no significant accessory muscle action noted. Breath sounds clear to auscultation bilaterally and equal noted. No wheezes rales or rhonchi noted. No significant dullness noted on percussion. CHEST: Palpation of the chest wall shows no significant chest wall tenderness. 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 ABDOMEN: Soft, no significant tenderness appreciated, normoactive bowel sounds. No guarding, no rebound. No rigidity noted . No masses appreciated. EXTREMITIES: Pedal pulses are 1-2+, no calf tenderness noted. No clubbing or cyanosis. 1+ pedal edema noted NEUROLOGICAL: Focused neurological exam showed no significant neurologic deficit. Normal speech, no focal weakness appreciated. PSYCH: Normal mood, normal affect. Judgment and insight within normal limits. SKIN: No significant ecchymosis, skin is noted to be warm. MUSCULOSKELETAL EXAM: No significant acute joint swelling noted. Results Laboratory Results: 10/08/17 10/08/17 04:30 04:30 Retic Count (auto) 1.43 Absolute Retic 0.054 Iron 21.1 L TIBC 431 % Saturation 5 Ferritin 6.61 Vitamin B12 215.0 L Folate 4.13 10/08/17 04:30 Troponin I < 0.012 EKG Comments: Telemetry strips reviewed. No significant cardiac dysrhythmia noted. Impressions: Chest/Abdomen CTA 10/07/17 12:16 IMPRESSION: No CT angio evidence of acute pulmonary emboli. No acute infiltrates. Mild increased interstitial markings right greater than left with mild right hilar adenopathy. Question sarcoidosis or other interstitial lung disease. Venous Doppler Study 10/07/17 13:25 IMPRESSION: NO EVIDENCE DVT OR SVT IN EITHER LEG. Assessment & Plan - Diagnosis (1) Chest pain at rest Is this a current diagnosis for this admission?: Yes (3) Coronary artery disease Qualifiers: Coronary Disease-Associated Artery/Lesion type: [place] artery [place] vs. transplanted heart: [place] heart Is this a current diagnosis for this admission?: Yes (4) Obesity Qualifiers: Obesity type: unspecified obesity type Obesity classification: unspecified obesity classification Is this a current diagnosis for this admission?: Yes (5) Abnormal EKG Is this a current diagnosis for this admission?: Yes (6) Anemia Qualifiers: Anemia type: unspecified type Qualified Code(s): D64.9 - Anemia, unspecified Is this a current diagnosis for this admission?: Yes (7) Congestive heart failure Qualifiers: Heart failure type: unspecified Heart failure chronicity: acute Qualified Code(s): I50.9 - Heart failure, unspecified Is this a current diagnosis for this admission?: Yes - Notes Notes: 2D echo preliminary results shows normal LVEF. Will schedule patient for a nuclear stress test for tomorrow. 2D echo results were reviewed with the patient. Patient questions were answered. 2D echo also showed no significant valvular abnormalities. Diastolic dysfunction noted. Mild pulmonary hypertension noted. Chest pain: Cardiac enzymes so far has been negative. Electrocardiogram did not show any definitive ST segment changes. Multiple differential diagnoses exist in this patient. Patient has known history of CAD and prior TN. Feel that it would need to be evaluated further. Discussed evaluation to assess this. In this regard risk benefits of nuclear stress test and other alternative processes were discussed in detail. The patient prefers to undergo nuclear stress test. Congestive heart failure: Most likely related to diastolic dysfunction but currently unspecified. This is most likely also acute on chronic. 2D echo shows normal LVEF. CHF therefore from diastolic dysfunction. CAD: Recommend antiplatelet statin and beta-keiko therapy. To be gradually reinstituted during this admission. Obesity: Patient has been encouraged in weight loss. Abnormal EKG: To be evaluated with a 2D echo and nuclear stress test. 2D echo results reviewed. Nuclear stress test pending for tomorrow. Maintain electrolyte within normal limits. Anemia: Hemoglobin is low. To be evaluated further by the hospitalist or can be evaluated as an outpatient. Currently noted to be deficient in B12 and iron.. - Time Time with patient: Greater than 35 minutes - Risk benefits of nuclear stress test discussed. CODE STATUS was discussed, patient remains full code. Surrogate decision-maker patient's son. Multiple medical problems were addressed. More than 50% of the time spent coordinating care, discussing management plans with involved caregivers. Management plans discussed with involved personnels. Medical decision making was of moderate to high complexity , patient's has multiple comorbidities. Medications reviewed and adjusted accordingly: Yes
[2017-10-09] MEDS ORDERED: REGADENOSON INJ 0.4 MG/5 ML DISP.SYRIN IV ONE (12:00)
--- NOTE | 2017-10-09 14:14 | DRAGON STRESS TEST REPORT ---
INTRAVENOUS LEXISCAN CARDIOLITE STRESS TEST USING SINGLE PHOTON EMMISION COMPUTERIZED TOMOGRAPHIC. DATE OF PROCEDURE: October 09, 2017, INDICATION : Chest pain CARDIAC RISK FACTORS: Patient with known history of CAD, CHF RESTING EKG: Sinus rhythm without any baseline ST-T wave changes noted STRESS EKG: No significant ST segment changes noted with LexiScan bolus REASON FOR TERMINATION: Protocol. PROCEDURE REPORT: Baseline heart rate 83 beats per minute with blood pressure of 99/69. Patient had no significant complaints. Patient was bolused with Lexiscan 0.4 mg intravenously followed by saline bolus. Heart rate at 2 minutes post bolus 98 with a blood pressure of 113/70. 3 minutes post bolus heart rate 94 with blood pressure of 111/69. No significant EKG changes were noted. Patient had no significant complaints during the procedure or postprocedure. Patient injected with Aminophyllin 75 mg at 3 minutes or later after Lexiscan bolus. CONCLUSIONS: Normal EKG and hemodynamic response to IV LexiScan. NUCLEAR DATA: At rest the patient was given 14.15 millicuries of technetium 99 sestamibi injected intravenously. As per protocol rest gated SPECT images were obtained. On day of stress test, the patient was given intravenous LexiScan at a dose of 0.4 mg in 5 mL intravenously, followed by flush with normal saline. Subsequently the stress dose of 42.2 millicuries of technetium 99 sestamibi was injected intravenously. As per protocol stress gated images were obtained. NUCLEAR INTERPRETATION: Both raw and processed data were used for interpretation. Visual, qualitative, computer-generated quantitative data was used. There was good myocardial uptake of technetium compound. Motion artifact and soft tissue attenuations were noted. Increased visceral uptake was noted. No definitive areas of transient perfusion defect noted, No definitive areas of fixed perfusion defect or scars noted. EKG gated imaging showed LV EF at 50 %, rest and stress gated EF similar visually. T. I D. ratio was 1.12. Lung heart ratio noted to be within normal limits 0.32. No significant extracardiac and abnormal radiotracer activities were noted. RV free wall uptake was noted to be WNL. IMPRESSION: Also refer to comments under nuclear interpretation. Also test results needs to be interpreted in the context of pretest probability. 1. No definitive areas of transient perfusion defect noted. 2. There is no definitive scintigraphic evidence of myocardial infarction/scar. 3. EKG gated imaging shows left ventricular ejection fraction of approx. 50 %. 4. Clinical correlation requested as occasionally single vessel disease or balanced ischemia could be missed. In approximately 10% of the cases Lexiscan may not cause adequate vasodilatory stress. RECOMMENDATIONS: Aggressive risk factor modification and medical management. Further evaluation may be needed if continued symptoms or other high risk indicators are noted on clinical evaluation. Close cardiology follow-up is also recommended. Clinical correlation with echocardiogram derived ejection fraction. Inability to exercise by itself can lead to increased cardiovascular event risks. Consider cardiology consultation and or follow-up if clinically indicated. I am available for cardiology evaluation and consultation if requested by the nuclear equipment operator, unless patient already has a three knife trimmer. TAN
[2017-10-09 15:43] VITALS: BP 134/77
--- NOTE | 2017-10-09 16:03 | PDOC DISCHARGE SUMMARY ---
General - Admit/Disc Date/PCP Admission Date/Primary Care Provider: 10/07/17 17:55 Discharge Date: 10/09/17 - Discharge Diagnosis (1) Abnormal EKG Is this a current diagnosis for this admission?: Yes (2) Bipolar disorder Is this a current diagnosis for this admission?: Yes (3) Chest pain at rest Is this a current diagnosis for this admission?: Yes (4) Congestive heart failure Is this a current diagnosis for this admission?: Yes (5) Coronary artery disease Is this a current diagnosis for this admission?: Yes (6) Anemia Is this a current diagnosis for this admission?: Yes (7) Atrial fibrillation Is this a current diagnosis for this admission?: Yes - Additional Information Resuscitation Status: Full Code Discharge Diet: Cardiac Discharge Activity: Activity As Tolerated, Balance Activity w/Rest, Weigh Daily Prescriptions: Apixaban [Eliquis 5 mg Tablet] 5 mg PO BID 60 Days tablet Atorvastatin Calcium [Lipitor 40 mg Tablet] 40 mg PO QHS #30 tablet Carvedilol [Coreg 12.5 mg Tablet] 12.5 mg PO Q12 #60 tablet Cyanocobalamin (Vitamin B-12) [B-12] 1,000 mcg PO DAILY 30 Days #30 tablet.er Furosemide [Lasix 40 mg Tablet] 40 mg PO QAM #30 tablet Lisinopril 5 mg PO DAILY #30 tablet Home Medications: Alprazolam [Xanax] 2 mg PO Q8HP PRN 10/07/17 Gabapentin [Neurontin 400 mg Capsule] 400 mg PO Q12 10/07/17 Hydrocodone/Acetaminophen [Hydrocodone-Acetamin 5-325 mg] 1 tab PO Q12 10/07/17 Mirtazapine [Remeron] 30 mg PO QHS 10/07/17 Omeprazole 40 mg PO QHS 10/07/17 Pantoprazole Sodium [Protonix] 40 mg PO DAILY 10/07/17 Zolpidem Tartrate [Ambien] 10 mg PO HSP PRN 10/07/17 Apixaban [Eliquis 5 mg Tablet] 5 mg PO BID 60 Days tablet 10/09/17 Atorvastatin Calcium [Lipitor 40 mg Tablet] 40 mg PO QHS #30 tablet 10/09/17 Carvedilol [Coreg 12.5 mg Tablet] 12.5 mg PO Q12 #60 tablet 05/25/18 Cyanocobalamin (Vitamin B-12) [B-12] 1,000 mcg PO DAILY 30 Days #30 tablet.er Furosemide [Lasix 40 mg Tablet] 40 mg PO QAM #30 tablet 10/09/17 Lisinopril 5 mg PO DAILY #30 tablet 10/09/17 History of Present Illness History of Present Illness: ANA LAURA DOTSON is a 47 year old female his patient presents to the emergency room with history of bilateral leg swelling. She states she flew here from [place] and noticed her legs to be swollen which she thought was due to her flight. She however says that she started having difficulty breathing also and so decided to come to the emergency room to get it checked out. While in the emergency room she started having some chest pain and had difficulty laying down when she was trying to have a CAT scan done. She was grabbing the side of the chest saying that this chest pain was right there however about the time of my exam she was chest pain- free. Patient states she has a prior history of coronary artery disease. She states she had a heart attack 10 years ago and had another one this May. She states that she was put on Plavix however she states she never had a stress test done and has never had a cardiac cath done. Patient's history is a little bit disjointed and its little difficult to really follow was going on here. She however was found to have an elevated BNP.. She was given some GI cocktail which appeared to have given her some relief when I stated earlier this patient' s story is a little disjointed so it is hard to separate the facts from all the extra stuff. He is a prior history of atrial fibrillation and says she is on metoprolol but has never been on an anticoagulant She does have a history of bipolar disorder which may explain some of her storytelling. Patient definitely does have some abnormal EKG findings including premature atrial complexes and PVCs as well as nonspecific T-wave changes. She has no local manager card as she is from a [facility] Hospital Course: Patient has been managed with Lasix for her congestive heart failure and for her chest pain she has been on nitroglycerin and Percocet. Patient remained chest pain-free throughout her stay. Patient also subjected to echocardiogram which revealed grade 2 diastolic dysfunction. Her cardiac stress test is negative. Her anemia workup shows low iron but total iron binding capacity saturation and ferritin are within normal limits. A 2 occasions her B12 found to be low and patient discharged with p.o. cyanocobalamin. Today on the day of discharge on physical examination I found the patient sitting by the bedside she is awake alert oriented and she is very eager to go home. Her vital signs are within normal limits her labs are stable and patient is to be discharged. I will continue all her home medication except I switched her metoprolol to Coreg. Added also for Eliquis for atrial fibrillation and Lipitor for hyperlipidemia and lisinopril for her congestive heart failure. End of dictation I spent 35 minutes to coordinate this discharge. Physical Exam Vital Signs: Temp Pulse Resp BP Pulse Ox 97.3 F 67 15 128/66 H 100 10/09/17 12:23 10/09/17 14:18 10/09/17 14:18 10/09/17 12:23 10/09/17 12:23 Intake & Output 10/08/17 10/09/17 10/10/17 06:59 06:59 06:59 Intake Total 1285 1524 Balance 1285 1524 Weight 95.9 kg 92.8 kg General appearance: PRESENT: no acute distress Head exam: PRESENT: atraumatic, normocephalic Ear exam: PRESENT: normal external ear exam Neck exam: ABSENT: carotid bruit, JVD, lymphadenopathy, thyromegaly Respiratory exam: PRESENT: clear to auscultation [place]. ABSENT: rales, rhonchi, wheezes Cardiovascular exam: PRESENT: RRR. ABSENT: diastolic murmur, rubs, systolic murmur GI/Abdominal exam: PRESENT: normal bowel sounds, soft. ABSENT: distended, guarding, mass, organolmegaly, rebound, tenderness Neurological exam: PRESENT: alert, awake, oriented to person, oriented to place , oriented to time, oriented to situation, CN II-XII grossly intact. ABSENT: motor sensory deficit Psychiatric exam: PRESENT: normal mood Results Laboratory Results: 10/09/17 04:35 Triglycerides 124 Cholesterol 231.63 H LDL Cholesterol Direct 141 H VLDL Cholesterol 25.0 HDL Cholesterol 56 Vitamin B12 235.0 L 10/08/17 04:30 Troponin I < 0.012 Impressions: Chest/Abdomen CTA 10/07/17 12:16 IMPRESSION: No CT angio evidence of acute pulmonary emboli. No acute infiltrates. Mild increased interstitial markings right greater than left with mild right hilar adenopathy. Question sarcoidosis or other interstitial lung disease. Venous Doppler Study 10/07/17 13:25 IMPRESSION: NO EVIDENCE DVT OR SVT IN EITHER LEG. Qualifiers - * PATIENT BEING DISCHARGED WITH ANY OF THE FOLLOWING DIAGNOSIS: Heart Failure VTE patient discharged on overlapping Therapy?: No Reason(s) for not prescribing Overlap Therapy:: Not indicated Stroke Pt being discharged on Anti-thrombolytic therapy?: No Reason(s) for not prescribing Anti-thrombolytic therapy:: Not indicated Stroke Pt being discharged on Anti-coagulation therapy?: No Reason(s) for not prescribing Anti-coagulation therapy:: Not indicated Stroke Pt being discharged on Statins?: No Reason(s) for not prescribing Statins therapy:: Not indicated DE Pt being discharged on Aspirin therapy?: No Reason(s) for not prescribing Aspirin therapy:: Not indicated DE Pt being discharged on Statins?: No Reason(s) for not prescribing Statin therapy:: Not indicated DE Pt discharged ACEI/ARBS?: No Reason(s) for not prescribing ACEI/ARBS:: Not indicated HF Pt being discharged on ACEI for LVEF less than 40%?: Yes HF Pt being discharged on ARBS for LVEF less than 40%?: No Reason(s) for not prescribing ARBS:: Not indicated HF Pt with Afib discharged with Warfarin?: No Reason(s) for not prescribing Warfarin:: Not indicated HF Pt discharged on evidence-based Beta Jacky:: Yes
--- NOTE | 2017-10-09 20:42 | PDOC PROGRESS REPORT ---
Subjective Progress Note for:: 10/09/17 Subjective:: Patient seems to be doing better. Pt is denying any chest arm or neck discomfort. Patient denying any PND, orthopnea. Patient denied any sustained palpitations, dizziness, syncope, near syncope. Patient denying any fever chills. Patient denying any other significant discomfort. Patient is maintaining sinus rhythm. In the morning nuclear stress test procedure, risk benefits were discussed in detail. Informed consent was obtained. Review of systems: Rest review of systems negative. Medications: Medications have been reviewed. Reason For Visit: ATYPICAL CHEST PAIN,CHF Physical Exam Vital Signs: Temp Pulse Resp BP Pulse Ox 97.3 F 67 15 128/66 H 100 10/09/17 12:23 10/09/17 14:18 10/09/17 14:18 10/09/17 12:23 10/09/17 12:23 Intake & Output 10/08/17 10/09/17 10/10/17 06:59 06:59 06:59 Intake Total 1285 1524 Balance 1285 1524 Weight 95.9 kg 92.8 kg Exam: GENERAL: well-nourished and in no acute distress. Alert and oriented x3 HEAD: Atraumatic, normocephalic. EYES: Pupils equal round and reactive to light, extraocular movements intact, sclera anicteric, conjunctiva are normal. ENT: TMs normal, nares patent, oropharynx clear without exudates. Moist mucous membranes. No oral ulcerations or bleeding gums noted NECK: supple without lymphadenopathy. Trachea is central. No cervical or axillary lymphadenopathy noted. Carotids are 2+, JVD WNL LUNGS: Respiration seems nonlabored, no significant accessory muscle action noted. Breath sounds clear to auscultation bilaterally and equal noted. No wheezes rales or rhonchi noted. No significant dullness noted on percussion. CHEST: Palpation of the chest wall shows no significant chest wall tenderness. 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 ABDOMEN: Soft, no significant tenderness appreciated, normoactive bowel sounds. No guarding, no rebound. No rigidity noted . No masses appreciated. EXTREMITIES: Pedal pulses are 1-2+, no calf tenderness noted. No clubbing or cyanosis. negative pedal edema noted NEUROLOGICAL: Focused neurological exam showed no significant neurologic deficit. Normal speech, no focal weakness appreciated. PSYCH: Normal mood, normal affect. Judgment and insight within normal limits. SKIN: No significant ecchymosis, skin is noted to be warm. MUSCULOSKELETAL EXAM: No significant acute joint swelling noted. Results Laboratory Results: 10/09/17 04:35 Triglycerides 124 Cholesterol 231.63 H LDL Cholesterol Direct 141 H VLDL Cholesterol 25.0 HDL Cholesterol 56 Vitamin B12 235.0 L 10/08/17 04:30 Troponin I < 0.012 EKG Comments: Telemetry strip shows sinus rhythm without any sustained tachycardia or bradycardia. Impressions: Chest/Abdomen CTA 10/07/17 12:16 IMPRESSION: No CT angio evidence of acute pulmonary emboli. No acute infiltrates. Mild increased interstitial markings right greater than left with mild right hilar adenopathy. Question sarcoidosis or other interstitial lung disease. Venous Doppler Study 10/07/17 13:25 IMPRESSION: NO EVIDENCE DVT OR SVT IN EITHER LEG. Assessment & Plan - Diagnosis (1) Chest pain at rest Is this a current diagnosis for this admission?: Yes (3) Coronary artery disease Qualifiers: Coronary Disease-Associated Artery/Lesion type: [place] artery [place] vs. transplanted heart: [place] heart Is this a current diagnosis for this admission?: Yes (4) Obesity Qualifiers: Obesity type: unspecified obesity type Obesity classification: unspecified obesity classification Is this a current diagnosis for this admission?: Yes (5) Abnormal EKG Is this a current diagnosis for this admission?: Yes (6) Anemia Qualifiers: Anemia type: unspecified type Qualified Code(s): D64.9 - Anemia, unspecified Is this a current diagnosis for this admission?: Yes (7) Congestive heart failure Qualifiers: Heart failure type: unspecified Heart failure chronicity: acute Qualified Code(s): I50.9 - Heart failure, unspecified Is this a current diagnosis for this admission?: Yes - Notes Notes: 2D echo preliminary results shows normal LVEF. Nuclear stress test results were discussed with the patient in detail. Patient questions were answered. Nuclear stress test was noted to be relatively low risk. Chest pain: Cardiac enzymes so far has been negative. Electrocardiogram did not show any definitive ST segment changes. Nuclear stress test was noted to be relatively low risk. Please see dictated report for details. Patient advised aggressive risk factor modification and medical management at this point. Patient given my card should she make a follow-up appointment. CAD: Recommend antiplatelet statin and beta-keiko therapy. Further adjustment as needed can be performed as an outpatient. Obesity: Patient has been encouraged in weight loss. Abnormal EKG: This was evaluated with a 2D echocardiogram and nuclear stress test. Results have unremarkable. Anemia: Hemoglobin is low. To be evaluated further by the hospitalist or can be evaluated as an outpatient. Currently noted to be deficient in B12 and iron.. - Time Time with patient: Greater than 35 minutes - Patient was seen multiple times. Total time exceeds 40 minutes. In the morning nuclear stress test procedure, risks benefits, alternatives were discussed. Patient seen during the stress test. Patient also seen after stress test when results were discussed with the patient in detail. Patient's questions were answered. Nuclear stress test results were discussed with the patient. Patient was informed that overall it was a low risk stress test. Patient informed that occasionally significant single vessel disease or balanced ischemia could be missed. However based on the current study results, would recommend aggressive risk factor modification and medical therapy. It may also be worthwhile to consider evaluation or empiric management of other causes of chest pain. Should no other cause be found and if persistent in having chest pain, then cardiac catheterization should be considered. Right now, recommendations are for aggressive risk factor modification and medical management. Medications reviewed and adjusted accordingly: Yes
== END 2017-10-09 16:32 | disposition home or self-care (01) | DRG 293 ==
LOC: ER 11:47 → EH 17:55 → 3W 21:20
PROVIDERS: ADMIT Internal Medicine; ATTEND Internal Medicine
DX: I50.9 Heart failure, unspecified (principal); I25.110 Atherosclerotic heart disease of native coronary artery with unstable angina pectoris; I48.0 Paroxysmal atrial fibrillation; D64.9 Anemia, unspecified; R94.31 Abnormal electrocardiogram [ECG] [EKG]; F31.9 Bipolar disorder, unspecified; F17.210 Nicotine dependence, cigarettes, uncomplicated; E66.9 Obesity, unspecified; I25.2 Old myocardial infarction; Z68.34 Body mass index [BMI] 34.0-34.9, adult; Z86.711 Personal history of pulmonary embolism; Z79.01 Long term (current) use of anticoagulants; Z98.84 Bariatric surgery status
CPT/HCPCS: 36415; 71275; 78452; 80048; 80061; 82550; 82553; 82607; 82728; 82746; 83540; 83550; 83880; 84484; 85025; 85045; 85610; 85730; 93005; 93010; 93017; 93306; 93970; 96374; 96375; 99285; A9500; J1650; J1940; J2270; J2785; Q9969

== ENCOUNTER 2017-10-13 14:46 | Emergency (ER) | payer MEDICARE ==
[2017-10-13] MEDS ORDERED: LORAZEPAM 1 MG TABLET PO ONE (15:30)
--- NOTE | 2017-10-13 15:34 | ER Document Report ---
ED Medical Screen (RME) - General Chief Complaint: Chest Pain Stated Complaint: CHEST PAIN,SHORTNESS OF BREATH Time Seen by Provider: 10/13/17 15:18 Notes: 47 years old female with a history of angina presents today with chest pain on and off for the last 24 hours. Associated with numbness over the right hand. Denies any difficulty in breathing palpitation or diaphoresis. She also has history of anxiety attack giving rise to numbness and crampiness over the upper limbs as well as perioral region. I have greeted and performed a rapid initial assessment of this patient. A comprehensive ED assessment and evaluation of the patient, analysis of test results and completion of the medical decision making process will be conducted by additional ED providers. PHYSICAL EXAMINATION: GENERAL: Well-appearing, well-nourished and in no acute distress. HEAD: Atraumatic, normocephalic. EYES: Pupils equal round extraocular movements intact, conjunctiva are normal. ENT: Nares patent NECK: Normal range of motion LUNGS: No respiratory distress Musculoskeletal: Normal range of motion NEUROLOGICAL: Normal speech, normal gait. PSYCH: Normal mood, normal affect. SKIN: Warm, Dry, normal turgor, no rashes or lesions noted. TRAVEL OUTSIDE OF THE [place] IN LAST 30 DAYS: No - Related Data Allergies/Adverse Reactions: ciprofloxacin [From Cipro] Allergy (Verified 10/07/17 12:09) NSAIDS (Non-Steroidal Anti-Inflamma Allergy (Verified 10/07/17 12:09) steroids Allergy (Uncoded 10/07/17 12:09) Past Medical History - Social History Chew tobacco use (# tins/day): No Frequency of alcohol use: None Drug Abuse: None - Past Medical History Cardiac Medical History: Reports: Hx Atrial Fibrillation, Hx Heart Attack Renal/ Medical History: Denies: Hx Peritoneal Dialysis Psychiatric Medical History: Reports: Hx Bipolar Disorder Denies: Hx Depression Past Surgical History: Reports: Hx Abdominal Surgery - gastric bypass, Hx Appendectomy, Hx Cholecystectomy, Hx Hysterectomy, Hx Orthopedic Surgery - shoulder x2, implant in back - Immunizations History of Influenza Vaccine for 02/2017 - 07/2017 Season: Yes Influenza Administration Date for 02/2017 - 07/2017 Season: 06/16/17 Physical Exam - Vital signs Vitals: Temp Pulse Resp BP Pulse Ox 97.5 F 63 18 132/97 H 97 10/13/17 14:49 10/13/17 14:49 10/13/17 14:49 10/13/17 14:49 10/13/17 14:49 Course - Vital Signs Vital signs: Temp Pulse Resp BP Pulse Ox 97.5 F 63 18 132/97 H 97 10/13/17 14:49 10/13/17 14:49 10/13/17 14:49 10/13/17 14:49 10/13/17 14:49
--- NOTE | 2017-10-13 16:36 | RADIOLOGY REPORT (SQ) ---
EXAM DESCRIPTION: CHEST SINGLE VIEW COMPLETED DATE/TIME: 10/13/2017 4:27 pm REASON FOR STUDY: sob COMPARISON: None. EXAM PARAMETERS: NUMBER OF VIEWS: One view. TECHNIQUE: Single frontal radiographic view of the chest acquired. RADIATION DOSE: NA LIMITATIONS: None. FINDINGS: LUNGS AND PLEURA: No opacities, masses or pneumothorax. No pleural effusion. MEDIASTINUM AND HILAR STRUCTURES: No masses. Contour normal. HEART AND VASCULAR STRUCTURES: Heart normal in size. Normal vasculature. BONES: No acute findings. HARDWARE: Spinal stimulator electrodes. OTHER: No other significant finding. IMPRESSION: NO ACUTE RADIOGRAPHIC FINDING IN THE CHEST. TECHNICAL DOCUMENTATION: JOB ID: [id number] [employer]- All Rights Reserved Reading location - IP/workstation name: [email or web address]
[2017-10-13 16:47] LABS: ABSOLUTE BASOPHILS # (AUTO) 0.1 10^3/uL (0.0-0.2); ABSOLUTE EOSINOPHILS # (AUTO) 0.1 10^3/uL (0.0-0.6); ABSOLUTE LYMPHOCYTES (AUTO) 2.8 10^3/uL (0.5-4.7); ABSOLUTE MONOCYTES (AUTO) 0.9 10^3/uL (0.1-1.4); ABSOLUTE NEUT (AUTO) 5.3 10^3/uL (1.7-8.2); BASOPHILS % (AUTO) 1.3 % (0-2); HEMOGLOBIN 11.5 g/dL (12.0-15.5); LYMPHOCYTES % (AUTO) 30.5 % (13-45); MEAN CORPUSCULAR HEMOGLOBIN 24.8 pg (27.0-33.4); MEAN CORPUSCULAR HGB CONC 32.8 g/dL (32.0-36.0); MEAN CORPUSCULAR VOLUME 76 fl (80-97); MONOCYTES % (AUTO) 9.6 % (3-13); PLATELET COUNT 302 10^3/uL (150-450); RED BLOOD COUNT 4.63 10^6/uL (3.72-5.28); RED CELL DISTRIBUTION WIDTH 20.3 % (11.5-14.0); SEGMENTED NEUTROPHILS % (AUTO) 57.6 % (42-78); TOTAL CELLS COUNTED % (AUTO) 100 %; WHITE BLOOD COUNT 9.2 10^3/uL (4.0-10.5)
[2017-10-13 17:11] LABS: ALANINE AMINOTRANSFERASE 19 U/L (9-52); ALBUMIN 4.3 g/dL (3.5-5.0); ALKALINE PHOSPHATASE 125 U/L (38-126); ANION GAP 14 (5-19); ASPARTATE AMINO TRANSFERASE 26 U/L (14-36); BILIRUBIN,DIRECT 0.2 mg/dL (0.0-0.4); BILIRUBIN,TOTAL 0.2 mg/dL (0.2-1.3); BLOOD UREA NITROGEN 26 mg/dL (7-20); CALCIUM 9.9 mg/dL (8.4-10.2); CARBON DIOXIDE 28 mmol/L (22-30); CHLORIDE 102 mmol/L (98-107); CREATINE KINASE 88 U/L (30-135); GLUCOSE 93 mg/dL (75-110); POTASSIUM 4.8 mmol/L (3.6-5.0); SODIUM 144.3 mmol/L (137-145); TOTAL PROTEIN 7.4 g/dL (6.3-8.2)
[2017-10-13 17:23] LABS: CREATINE KINASE MB 0.47 ng/mL (<4.55)
[2017-10-13 17:27] LABS: TROPONIN I < 0.012 ng/mL
[2017-10-13] MEDS ORDERED: FUROSEMIDE INJ/PF 40 MG/4 ML SDV IV ONE (19:11)
[2017-10-13] MEDS ORDERED: APIXABAN 5 MG TABLET PO ONE (19:12)
--- NOTE | 2017-10-13 19:54 | ER Document Report ---
ED General - General Chief Complaint: Chest Pain Stated Complaint: CHEST PAIN,SHORTNESS OF BREATH Time Seen by Provider: 10/13/17 15:18 TRAVEL OUTSIDE OF THE [place] IN LAST 30 DAYS: No - HPI Patient complains to provider of: chest pain shortness of breath Notes: Patient coming in for evaluation of chest pain intermittent ongoing for the last few days of shortness of breath. Patient was recently admitted to the hospital for evaluation similar symptoms found to have underlying CHF had a significant workup done with a negative stress test negative CTA started on Lasix also started on Eliquis because of underlying atrial fibrillation and was discharged from the hospital patient states she is feeling good for the first few days however progressed back to having bilateral foot pain along with some shortness of breath patient states most this is volume related. Patient states she has gained 3 pounds of weight since being discharged from hospital. Patient states she has been trying to watch her salt however is not on any current fluid restriction. Patient states she has been compliant with her medications and for the Eliquis which was not prescribed to her. Patient did call hospital had a prescription for Eliquis is at her pharmacy. Patient otherwise resting comfortably denies any fever chills nausea vomiting diarrhea. Patient states her pain starts in the epigastric region and goes up into her chest. Patient states she has never had any GI workup. - Related Data Allergies/Adverse Reactions: ciprofloxacin [From Cipro] Allergy (Verified 10/07/17 12:09) NSAIDS (Non-Steroidal Anti-Inflamma Allergy (Verified 10/07/17 12:09) steroids Allergy (Uncoded 10/07/17 12:09) Past Medical History - Social History Smoking Status: Current Some Day Smoker Chew tobacco use (# tins/day): No Frequency of alcohol use: None Drug Abuse: None Family History: Hypertension Patient has suicidal ideation: No Patient has homicidal ideation: No - Past Medical History Cardiac Medical History: Reports: Hx Atrial Fibrillation, Hx Heart Attack Renal/ Medical History: Denies: Hx Peritoneal Dialysis Psychiatric Medical History: Reports: Hx Bipolar Disorder Denies: Hx Depression Past Surgical History: Reports: Hx Abdominal Surgery - gastric bypass, Hx Appendectomy, Hx Cholecystectomy, Hx Hysterectomy, Hx Orthopedic Surgery - shoulder x2, implant in back - Immunizations Hx Pneumococcal Vaccination: 06/16/17 Review of Systems - Review of Systems Constitutional: No symptoms reported EENT: No symptoms reported Cardiovascular: Chest pain Respiratory: No symptoms reported Gastrointestinal: No symptoms reported Genitourinary: No symptoms reported Female Genitourinary: No symptoms reported Musculoskeletal: No symptoms reported Skin: No symptoms reported Hematologic/Lymphatic: No symptoms reported Neurological/Psychological: No symptoms reported -: Yes All other systems reviewed and negative Physical Exam - Vital signs Vitals: Temp Pulse Resp BP Pulse Ox 97.5 F 63 18 132/97 H 97 10/13/17 14:49 10/13/17 14:49 10/13/17 14:49 10/13/17 14:49 10/13/17 14:49 Interpretation: Normal - General General appearance: Appears well, Alert - HEENT Head: Normocephalic, Atraumatic Eyes: Normal Pupils: PERRL - Respiratory Respiratory status: No respiratory distress Chest status: Nontender Breath sounds: Normal Chest palpation: Normal - Cardiovascular Rhythm: Regular Heart sounds: Normal auscultation Murmur: No - Abdominal Inspection: Normal Distension: No distension Bowel sounds: Normal Tenderness: Nontender Organomegaly: No organomegaly - Back Back: Normal, Nontender - Extremities General upper extremity: Normal inspection, Nontender, Normal color, Normal ROM , Normal temperature General lower extremity: Normal inspection, Nontender, Normal color, Normal ROM , Normal temperature, Normal weight bearing. No: Joseline's sign - Neurological Neuro grossly intact: Yes Cognition: Normal Orientation: AAOx4 [place] Coma Scale Eye Opening: Spontaneous [place] Coma Scale Verbal: Oriented [place] Coma Scale Motor: Obeys Commands [place] Coma Scale Total: 15 Speech: Normal Motor strength normal: LUE, RUE, LLE, RLE Sensory: Normal - Psychological Associated symptoms: Normal affect, Normal mood - Skin Skin Temperature: Warm Skin Moisture: Dry Skin Color: Normal Course - Re-evaluation Re-evalutation: 10/14/17 02:58 The patient has atypical chest pain as the patient's chest pain is not suggestive of pulmonary embolus, cardiac ischemia, aortic dissection, or other serious etiology. Given the extremely low risk of these diagnoses further testing and evaluation for these possibilities does not appear to be indicated at this time. The patient has been instructed to return if the symptoms worsen or change in any way. Troponins negative 2 EKG does not show any significant pathology. Patient chest pain-free upon my last evaluation. Do believe patient 's chest pain could likely be GI related as she has recently negative CTA of the neck stress test. Again also negative troponins. Patient was encouraged follow-up primary care physician or local combine operator. Patient will increase her Lasix for the next 3 days twice daily and also will follow fluid restriction - Vital Signs Vital signs: Temp Pulse Resp BP Pulse Ox 97.5 F 63 20 119/100 H 97 10/13/17 14:49 10/13/17 14:49 10/13/17 20:07 10/13/17 20:07 10/13/17 20:07 - Laboratory Result Diagrams: 10/13/17 16:30 10/13/17 16:30 Laboratory results interpreted by me: 10/13/17 10/13/17 16:30 16:30 Hgb 11.5 L Hct 35.0 L MCV 76 L MCH 24.8 L RDW 20.3 H BUN 26 H Est GFR (Non-Af Amer) 56 L Discharge - Discharge Clinical Impression: Atrial fibrillation Qualifiers: Atrial fibrillation type: unspecified Qualified Code(s): I48.91 - Unspecified atrial fibrillation Congestive heart failure Qualifiers: Heart failure type: unspecified Heart failure chronicity: unspecified Qualified Code(s): I50.9 - Heart failure, unspecified Condition: Good Disposition: HOME, SELF-CARE Instructions: Chest Pain of Unclear Cause ([facility]), Dyspnea, Nonspecific ([facility]), Family Physicians / Practices, Lasix, Reflux Disease (GERD) ([facility]) Additional Instructions: Your evaluation does not show any overt signs of congestive heart failure fluid in her lungs causing shortness of breath your cardiac enzymes EKG does not show a any acute changes no signs of heart attack no signs of cardiac damage. I would recommend a fluid restriction diet of 2500 mL or 2-1/2 [place] cups at home. Please continue your medications as prescribed from your previous admission to the hospital. I would recommend increasing her Lasix to twice a day for the next 3 days. should be the last time that you take an extra dose of Lasix at night. Return to the ER for any concerning issues. I highly recommend following up with 1 of the doctors provided and also follow-up with Dr. Monreal combine operator she saw while here in the hospital. Referrals: LAY MONREAL MD [ACTIVE STAFF] - Follow up as needed
[2017-10-13 20:40] VITALS: BP 119/100
[2017-10-13] MEDS ORDERED: FUROSEMIDE 40 MG TABLET PO ONE (21:04)
--- NOTE | 2017-10-13 23:31 | EKG REPORT ---
SEVERITY:- ABNORMAL ECG - SINUS RHYTHM MULTIPLE ATRIAL PREMATURE COMPLEXES : Confirmed by: Mervat Reese 13-Oct-2017 23:30:54
--- NOTE | 2017-10-13 23:31 | EKG REPORT ---
SEVERITY:- ABNORMAL ECG - SINUS TACHYCARDIA MULTIPLE ATRIAL PREMATURE COMPLEXES : Confirmed by: Mervat Reese 13-Oct-2017 23:31:09
== END 2017-10-13 21:52 | disposition home or self-care (01) ==
LOC: ER 14:46
DX: I50.9 Heart failure, unspecified (principal); I48.91 Unspecified atrial fibrillation; R07.89 Other chest pain; R06.02 Shortness of breath; I25.2 Old myocardial infarction; F17.200 Nicotine dependence, unspecified, uncomplicated; Z88.1 Allergy status to other antibiotic agents; Z88.8 Allergy status to other drugs, medicaments and biological substances
CPT/HCPCS: 93005; 99285; 96374; 36415; 82553; 82550; 85025; 80053; 84484; 71045; 93010; J1940; A9270 ×3

== ENCOUNTER 2017-10-25 13:08 | Emergency (ER) | payer MEDICARE ==
--- NOTE | 2017-10-25 13:27 | ER Document Report ---
ED Medical Screen (RME) - General Chief Complaint: Shortness Of Breath Stated Complaint: HEADACHE Time Seen by Provider: 10/25/17 13:24 Mode of Arrival: Ambulatory Information source: Patient Notes: This is a 47-year-old woman with a history of CHF, pancreatitis, blood clots and atrial fibrillation (on chronic anticoagulation with Eliquis) who presents to the emergency room with shortness of breath, coughing, increased swelling and weight gain. Patient also complains of headache. Patient is originally from [place] and has recently relocated to [place]. She was admitted last month with CHF and her weight on discharge was 202. She states that her weight this morning was 209lbs. I have greeted and performed a rapid initial assessment of this patient. A comprehensive ED assessment and evaluation of the patient, analysis of test results and completion of medical decision making process we will be contacted by additional ED providers. TRAVEL OUTSIDE OF THE [place] IN LAST 30 DAYS: No - Related Data Allergies/Adverse Reactions: ciprofloxacin [From Cipro] Allergy (Verified 10/25/17 13:09) NSAIDS (Non-Steroidal Anti-Inflamma Allergy (Verified 10/25/17 13:09) steroids Allergy (Uncoded 10/25/17 13:09) Past Medical History - Social History Chew tobacco use (# tins/day): No Frequency of alcohol use: None Drug Abuse: None - Past Medical History Cardiac Medical History: Reports: Hx Atrial Fibrillation, Hx Heart Attack Renal/ Medical History: Denies: Hx Peritoneal Dialysis Psychiatric Medical History: Reports: Hx Bipolar Disorder Denies: Hx Depression Past Surgical History: Reports: Hx Abdominal Surgery - gastric bypass, Hx Appendectomy, Hx Cholecystectomy, Hx Hysterectomy, Hx Orthopedic Surgery - shoulder x2, implant in back - Immunizations History of Influenza Vaccine for 02/2017 - 07/2017 Season: Yes Influenza Administration Date for 02/2017 - 07/2017 Season: 06/16/17 Physical Exam - Vital signs Vitals: Temp Pulse Resp BP Pulse Ox 98.1 F 60 20 117/69 95 10/25/17 13:12 10/25/17 13:12 10/25/17 13:12 10/25/17 13:12 10/25/17 13:12 Course - Vital Signs Vital signs: Temp Pulse Resp BP Pulse Ox 98.1 F 60 20 117/69 95 10/25/17 13:12 10/25/17 13:12 10/25/17 13:12 10/25/17 13:12 10/25/17 13:12
[2017-10-25 14:03] LABS: ABSOLUTE BASOPHILS # (AUTO) 0.1 10^3/uL (0.0-0.2); ABSOLUTE EOSINOPHILS # (AUTO) 0.1 10^3/uL (0.0-0.6); ABSOLUTE LYMPHOCYTES (AUTO) 2.3 10^3/uL (0.5-4.7); ABSOLUTE MONOCYTES (AUTO) 0.6 10^3/uL (0.1-1.4); BASOPHILS % (AUTO) 1.2 % (0-2); EOSINOPHILS % (AUTO) 1.4 % (0-6); HEMATOCRIT 32.7 % (36.0-47.0); HEMOGLOBIN 10.6 g/dL (12.0-15.5); LYMPHOCYTES % (AUTO) 28.2 % (13-45); MEAN CORPUSCULAR HEMOGLOBIN 25.1 pg (27.0-33.4); MEAN CORPUSCULAR HGB CONC 32.4 g/dL (32.0-36.0); MEAN CORPUSCULAR VOLUME 77 fl (80-97); MONOCYTES % (AUTO) 7.8 % (3-13); PLATELET COUNT 343 10^3/uL (150-450); RED BLOOD COUNT 4.23 10^6/uL (3.72-5.28); RED CELL DISTRIBUTION WIDTH 21.4 % (11.5-14.0); SEGMENTED NEUTROPHILS % (AUTO) 61.4 % (42-78); TOTAL CELLS COUNTED % (AUTO) 100 %; WHITE BLOOD COUNT 8.1 10^3/uL (4.0-10.5)
[2017-10-25] MEDS ORDERED: FUROSEMIDE INJ/PF 40 MG/4 ML SDV IV ONE (14:12)
[2017-10-25 14:17] LABS: ALANINE AMINOTRANSFERASE 20 U/L (9-52); ALKALINE PHOSPHATASE 98 U/L (38-126); ANION GAP 11 (5-19); ASPARTATE AMINO TRANSFERASE 23 U/L (14-36); BILIRUBIN,DIRECT 0.1 mg/dL (0.0-0.4); BILIRUBIN,TOTAL 0.1 mg/dL (0.2-1.3); BLOOD UREA NITROGEN 14 mg/dL (7-20); CALCIUM 9.6 mg/dL (8.4-10.2); CARBON DIOXIDE 29 mmol/L (22-30); CHLORIDE 105 mmol/L (98-107); CREATINE KINASE 76 U/L (30-135); GLUCOSE 110 mg/dL (75-110); POTASSIUM 4.2 mmol/L (3.6-5.0); SODIUM 144.7 mmol/L (137-145); TOTAL PROTEIN 6.8 g/dL (6.3-8.2)
--- NOTE | 2017-10-25 14:17 | ER Document Report ---
ED General - General Chief Complaint: Shortness Of Breath Stated Complaint: HEADACHE Time Seen by Provider: 10/25/17 13:24 Mode of Arrival: Ambulatory Information source: Patient Notes: 47-year-old female presents emergency department with multiple complaints. Patient states that this morning she began experiencing some shortness of breath. Patient states that she has a history of congestive heart failure recently diagnosed 2 weeks ago during her admission to the hospital. Patient states that she is currently on Lasix. She has been taking the medication as directed. Patient also has a history of atrial fibrillation and is on Eliquis. Patient's been taking this medication as directed as well. Patient denies any fever, cough, leg swelling, chest pain. She does complain of left knee pain. No trauma or injury to the knee. Patient denies any swelling to the knee or calf pain. She denies any numbness, tingling, weakness. Patient also complains of a diffuse headache. She has a history of migraine headaches. She states that this is similar to previous. She states that it is been constant for the last 2 weeks. Patient states that she brought up the headache while in the hospital and was told it was likely from the nitro that she was on. Patient states that it has never completely gone away. Patient states that she has an appointment with Dr. Reese in 3 days for a follow-up appointment. Patient had a normal stress test as well as 2D echo done on 10-09-17. TRAVEL OUTSIDE OF THE [place] IN LAST 30 DAYS: No - HPI Onset: This morning Onset/Duration: Gradual Quality of pain: Dull Severity: Mild Associated symptoms: Shortness of breath Exacerbated by: Denies Relieved by: Denies Similar symptoms previously: Yes Recently seen / treated by doctor: No - Related Data Allergies/Adverse Reactions: ciprofloxacin [From Cipro] Allergy (Verified 10/25/17 13:09) NSAIDS (Non-Steroidal Anti-Inflamma Allergy (Verified 10/25/17 13:09) steroids Allergy (Uncoded 10/25/17 13:09) Past Medical History - General Information source: Patient - Social History Smoking Status: Former Smoker Chew tobacco use (# tins/day): No Frequency of alcohol use: None Drug Abuse: None Family History: Reviewed & Not Pertinent, Hypertension Patient has suicidal ideation: No Patient has homicidal ideation: No - Past Medical History Cardiac Medical History: Reports: Hx Atrial Fibrillation, Hx Heart Attack Renal/ Medical History: Denies: Hx Peritoneal Dialysis Psychiatric Medical History: Reports: Hx Bipolar Disorder Denies: Hx Depression Past Surgical History: Reports: Hx Abdominal Surgery - gastric bypass, Hx Appendectomy, Hx Cholecystectomy, Hx Hysterectomy, Hx Orthopedic Surgery - shoulder x2, implant in back - Immunizations Hx Pneumococcal Vaccination: 06/16/17 Review of Systems - Review of Systems Constitutional: No symptoms reported EENT: No symptoms reported Cardiovascular: Dyspnea Respiratory: Short of breath Gastrointestinal: No symptoms reported Genitourinary: No symptoms reported Musculoskeletal: Joint pain Skin: No symptoms reported Hematologic/Lymphatic: No symptoms reported Neurological/Psychological: No symptoms reported -: Yes All other systems reviewed and negative Physical Exam - Vital signs Vitals: Temp Pulse Resp BP Pulse Ox 98.1 F 60 20 117/69 95 10/25/17 13:12 10/25/17 13:12 10/25/17 13:12 10/25/17 13:12 10/25/17 13:12 Interpretation: Normal - Notes Notes: PHYSICAL EXAMINATION: GENERAL: Well-appearing, well-nourished and in no acute distress. HEAD: Atraumatic, normocephalic. EYES: Pupils equal round and reactive to light, extraocular movements intact, conjunctiva are normal, hordeolum to left upper lid. ENT: Nares patent, oropharynx clear without exudates. Moist mucous membranes. NECK: Normal range of motion, supple without lymphadenopathy LUNGS: Breath sounds clear to auscultation bilaterally and equal. No wheezes rales or rhonchi. HEART: Regular rate and rhythm without murmurs ABDOMEN: Soft, nontender, nondistended abdomen. No guarding, no rebound. No masses appreciated. Female : deferred Musculoskeletal: Normal range of motion, no pitting or edema. No cyanosis, full range of motion to left knee. No tenderness to palpation. No erythema, edema, warmth, signs of infection. No calf tenderness to palpation.. NEUROLOGICAL: Cranial nerves grossly intact. Normal speech, normal gait. Normal sensory, motor exams PSYCH: Normal mood, normal affect. SKIN: Warm, Dry, normal turgor, no rashes or lesions noted. Course - Re-evaluation Re-evalutation: 10/25/17 16:00 Physical exam is unremarkable. Lungs are clear to auscultation bilaterally. No wheezing, rales, crackles. No lower extremity pitting edema. Labs and imaging obtained. They are within normal limits. BNP is normal. Troponin is within normal limits. CT of the head was done as the patient is having a headache. No acute process was seen. On reevaluation, patient states that she is feeling much better after receiving the Lasix. Patient states that she is urinated multiple times. Patient still complaining of a left-sided headache. Tylenol ordered. I will repeat a second troponin on the patient. Patient is comfortable with discharge home if the troponin comes back normal. 10/25/17 17:26 Patient does not want to wait for her repeat troponin. Wants to leave AMA. Patient acknowledges the risks of leaving AGAINST MEDICAL ADVICE. She understands that she may that she may worsen. - Vital Signs Vital signs: Temp Pulse Resp BP Pulse Ox 98.1 F 60 14 109/67 98 10/25/17 13:12 10/25/17 13:12 10/25/17 15:01 10/25/17 15:01 10/25/17 15:01 - Laboratory Result Diagrams: 10/25/17 13:52 10/25/17 13:52 Laboratory results interpreted by me: 10/25/17 10/25/17 10/25/17 13:52 13:52 13:52 Hgb 10.6 L Hct 32.7 L MCV 77 L MCH 25.1 L RDW 21.4 H Total Bilirubin 0.1 L NT-Pro-B Natriuret Pep 136 H - EKG Interpretation by Ma EKG shows normal: Sinus rhythm Rate: Normal - Rate 85, KS 156, QRS 80, QTc 438, no ischemic changes. Discharge - Discharge Clinical Impression: Shortness of breath Condition: Stable Disposition: AGAINST MEDICAL ADVICE Referrals: JAMES REINA MD [Primary Care Provider] - Follow up as needed
[2017-10-25 14:27] LABS: CREATINE KINASE MB 0.56 ng/mL (<4.55)
[2017-10-25 14:29] LABS: TROPONIN I < 0.012 ng/mL
--- NOTE | 2017-10-25 14:54 | RADIOLOGY REPORT (SQ) ---
EXAM DESCRIPTION: CT HEAD WITHOUT COMPLETED DATE/TIME: 10/25/2017 2:44 pm REASON FOR STUDY: headache, anticoagulated COMPARISON: None. TECHNIQUE: Axial images acquired through the brain without intravenous contrast. Images reviewed wi th bone, brain and subdural windows. Additional sagittal and coronal reconstructions were generated. Images stored on PACS. All CT scanners at this facility use dose modulation, iterative reconstruction, and/or weight based d osing when appropriate to reduce radiation dose to as low as reasonably achievable (ALARA). [facility]: Dose Right [facility]: CareDose [facility]: Dose Right [facility]: Teradose 4D [facility]: Smart Ev[employer] Software RADIATION DOSE: CT Rad equipment meets quality standard of care and radiation dose reduction techniq ues were employed. CTDIvol: 53.2 mGy. DLP: 1044 mGy-cm. mGy. LIMITATIONS: None. FINDINGS: VENTRICLES: Normal size and contour. CEREBRUM: No masses. No hemorrhage. No midline shift. No evidence for acute infarction. Normal gra y/white matter differentiation. No areas of low density in the white matter. CEREBELLUM: No masses. No hemorrhage. No alteration of density. No evidence for acute infarction. EXTRAAXIAL SPACES: No fluid collections. No masses. ORBITS AND GLOBE: No intra- or extraconal masses. Normal contour of globe without masses. CALVARIUM: No fracture. PARANASAL SINUSES: No fluid or mucosal thickening. SOFT TISSUES: No mass or hematoma. OTHER: No other significant finding. IMPRESSION: NORMAL BRAIN CT WITHOUT CONTRAST. EVIDENCE OF ACUTE STROKE: NO. COMMENT: Quality ID # [id number]: Final reports with documentation of one or more dose reduction techniques (e.g., Automated exposure control, adjustment of the mA and/or kV according to patient size, use of iterative reconstruction technique) TECHNICAL DOCUMENTATION: JOB ID: [id number] [employer]- All Rights Reserved Reading location - IP/workstation name: [email or web address]
[2017-10-25 15:21] VITALS: BP 109/67
--- NOTE | 2017-10-25 15:26 | RADIOLOGY REPORT (SQ) ---
EXAM DESCRIPTION: CHEST SINGLE VIEW COMPLETED DATE/TIME: 10/25/2017 2:38 pm REASON FOR STUDY: Chest pain and shortness of breath. COMPARISON: 10/13/2017. EXAM PARAMETERS: NUMBER OF VIEWS: One view. TECHNIQUE: Single frontal radiographic view of the chest acquired. RADIATION DOSE: NA LIMITATIONS: None. FINDINGS: LUNGS AND PLEURA: No acute infiltrates or effusions. MEDIASTINUM AND HILAR STRUCTURES: No masses. Contour normal. HEART AND VASCULAR STRUCTURES: The heart is normal with normal pulmonary vasculature. BONES: No acute findings. HARDWARE: Stimulator wires overlie mid dorsal region. . OTHER: Chest leads in place. IMPRESSION: NO ACUTE DISEASE. TECHNICAL DOCUMENTATION: JOB ID: [id number] 2010 [employer]- All Rights Reserved Reading location - IP/workstation name: [email or web address]
[2017-10-25] MEDS ORDERED: ACETAMINOPHEN 325 MG TABLET PO ONE (16:00)
--- NOTE | 2017-10-26 07:20 | EKG REPORT ---
SEVERITY:- ABNORMAL ECG - SINUS RHYTHM MULTIPLE ATRIAL PREMATURE COMPLEXES : Confirmed by: Kennedy Goode MD 26-Oct-2017 07:20:00
== END 2017-10-25 17:30 | disposition left against medical advice (07) ==
LOC: ER 13:08
DX: I50.9 Heart failure, unspecified (principal); R06.02 Shortness of breath; R51 Headache; M25.562 Pain in left knee; I25.2 Old myocardial infarction; I48.91 Unspecified atrial fibrillation; Z79.01 Long term (current) use of anticoagulants; Z86.69 Personal history of other diseases of the nervous system and sense organs; Z88.1 Allergy status to other antibiotic agents; Z88.8 Allergy status to other drugs, medicaments and biological substances; Z87.891 Personal history of nicotine dependence; Z98.84 Bariatric surgery status; Z53.20 Procedure and treatment not carried out because of patient's decision for unspecified reasons
CPT/HCPCS: 93005; 99285; 96374; 36415; 82553; 82550; 85025; 80053; 84484; 83880; 71045; 70450; 93010; A9270; J1940

== ENCOUNTER → 2017-10-28 | Outpatient (CLI) | payer MEDICARE ==
[2017-10-28 19:05] LABS: ALANINE AMINOTRANSFERASE 23 U/L (9-52); ALBUMIN 4.3 g/dL (3.5-5.0); ALKALINE PHOSPHATASE 106 U/L (38-126); ANION GAP 12 (5-19); ASPARTATE AMINO TRANSFERASE 26 U/L (14-36); BILIRUBIN,DIRECT 0.2 mg/dL (0.0-0.4); BILIRUBIN,TOTAL 0.2 mg/dL (0.2-1.3); BLOOD UREA NITROGEN 35 mg/dL (7-20); CALCIUM 9.7 mg/dL (8.4-10.2); CARBON DIOXIDE 27 mmol/L (22-30); CHLORIDE 107 mmol/L (98-107); GLUCOSE 81 mg/dL (75-110); POTASSIUM 4.5 mmol/L (3.6-5.0); SODIUM 146.4 mmol/L (137-145); TOTAL PROTEIN 7.2 g/dL (6.3-8.2)
[2017-10-28 19:39] LABS: FERRITIN 7.83 ng/mL (6.2-137.0)
== END ==
LOC: OD 16:44
PROVIDERS: ATTEND Internal Medicine Cardiovascular Disease
DX: I50.9 Heart failure, unspecified (principal); R53.83 Other fatigue; R06.02 Shortness of breath; R07.9 Chest pain, unspecified
CPT/HCPCS: 36415; 80053; 82306; 82728; 83880; 84443

== ENCOUNTER 2018-03-29 10:12 | Emergency (ER) | payer MEDICARE ==
[2018-03-29] MEDS ORDERED: DEXAMETHASONE SOD PHOS INJ 10 MG/1 ML VIAL IM ONE (10:52)
[2018-03-29] MEDS ORDERED: LIDOCAINE 5% (700 MG) TRANSDERMAL ADH..PATCH TP ONE (10:52)
[2018-03-29] MEDS ORDERED: KETOROLAC TROMETHAMINE 60 MG/2 ML SDV IM ONE (10:52)
[2018-03-29] MEDS ORDERED: CYCLOBENZAPRINE HCL 10 MG TABLET PO ONE (10:52)
[2018-03-29 10:53] LABS: APPEARANCE,URINE SLIGHTLY-CLOUDY; BILIRUBIN,URINE NEGATIVE (NEGATIVE); COLOR,URINE YELLOW; GLUCOSE, URINE NEGATIVE (NEGATIVE); KETONES,URINE NEGATIVE (NEGATIVE); LEUKOCYTE ESTERASE,URINE NEGATIVE (NEGATIVE); NITRITE,URINE NEGATIVE (NEGATIVE); PROTEIN,URINE NEGATIVE (NEGATIVE); URINE SPECIFIC GRAVITY 1.025
[2018-03-29] MEDS ORDERED: HYDROCODONE/ACETAMINOPHEN 5-325 MG (6 TAB/ER DISP) PO PRN (10:56)
--- NOTE | 2018-03-29 10:59 | ER Document Report ---
HPI - HPI Pain Level: 4 Notes: Patient is a 47-year-old female who presents to the emergency department with chief complaint of low back pain. Patient reports that this is been ongoing for approximately 4 days and she has radiation down both her legs. She denies loss of any control of her bowels, states she is able to urinate without difficulty and denies any saddle anesthesia. Patient has not had any fever. Patient denies any specific injury but states that she did twist wrong the other day while trying to do laundry and she thinks that is what aggravated her back. Patient does have a history of chronic back pain however she states that has been under control for quite some time. Patient reports history of gastric bypass, states she cannot take oral NSAIDs or oral steroids but can take them intramuscularly. - REPRODUCTIVE Reproductive: DENIES: : Past Medical History - General Information source: Patient - Social History Smoking Status: Never Smoker Smoking Education Provided: Yes Frequency of alcohol use: None Family History: Reviewed & Not Pertinent, Hypertension - Past Medical History Cardiac Medical History: Reports: Hx Atrial Fibrillation, Hx Congestive Heart Failure, Hx Heart Attack Renal/ Medical History: Denies: Hx Peritoneal Dialysis Psychiatric Medical History: Reports: Hx Bipolar Disorder Denies: Hx Depression Past Surgical History: Reports: Hx Abdominal Surgery - gastric bypass, Hx Appendectomy, Hx Cholecystectomy, Hx Hysterectomy, Hx Orthopedic Surgery - shoulder x2, implant in back - Immunizations Hx Pneumococcal Vaccination: 06/16/17 Vertical Provider Document - CONSTITUTIONAL Notes: PHYSICAL EXAMINATION: GENERAL: Well-appearing, well-nourished and in no acute distress. HEAD: Atraumatic, normocephalic. EYES: Pupils equal round extraocular movements intact, conjunctiva are normal. ENT: Nares patent NECK: Normal range of motion LUNGS: No respiratory distress Musculoskeletal: Normal range of motion, tenderness to palpation to lumbar spine and bilateral buttocks. No saddle anesthesia. NEUROLOGICAL: Normal speech, normal gait. PSYCH: Normal mood, normal affect. SKIN: Warm, Dry, normal turgor, no rashes or lesions noted. - INFECTION CONTROL TRAVEL OUTSIDE OF THE [place] IN LAST 30 DAYS: No Course - Re-evaluation Re-evalutation: Patient's examination is most consistent with acute musculoskeletal strain. Patient will be treated symptomatically and instructed to follow-up with a primary care provider if not improving over the next 1-2 weeks. Strict ED return precautions also given to patient and outlined in her discharge instructions. - Vital Signs Vital signs: Temp Pulse Resp BP Pulse Ox 98.7 F 94 17 113/67 95 03/29/18 10:17 03/29/18 10:17 03/29/18 10:17 03/29/18 10:17 03/29/18 10:17 Discharge - Discharge Clinical Impression: Lumbar strain Qualifiers: Encounter type: initial encounter Qualified Code(s): S39.012A - Strain of muscle, fascia and tendon of lower back, initial encounter Condition: Stable Disposition: HOME, SELF-CARE Additional Instructions: LOW BACK PAIN: Three out of every four people will have an episode of disabling back pain during their lifetime. Most commonly the pain is due to straining of the muscles and ligaments in the low back. Usual treatment includes: (1) Rest on a firm surface. Avoid lying on your stomach. (2) Ice pack the painful area. After a few days, gentle heat may be used intermittently to relax the area, or ice packs can be continued. (3) Medication may be needed -- muscle relaxers and antiinflammatory medicines are commonly used. (4) As the back improves, exercises are prescribed to strengthen the back and abdominal muscles. Your doctor will advise you on the proper care for your back at each stage in your recovery. You may be better in a few days -- or healing may take several weeks. If new symptoms of a "herniated disc" (radiation of pain, numbness, or tingling down the back of the leg or weakness in the leg) occur, you should be re-examined. Further testing may be necessary. PAIN MEDICATION INJECTION: You have received an injection of a pain medication. You should experience significant pain relief within 45 minutes. If this injection was a narcotic -- it will impair your judgement, slow your reaction time and make you sleepy (as well as relieve your pain). Narcotics also can cause nausea. You should not drive, work with machinery, or perform any task requiring mental alertness until all effects of the medication are gone -- six to eight hours. Do not take any alcohol, or sedatives, and do not take any other medication without checking with your physician. ORAL NARCOTIC MEDICATION: You have been given a prescription for pain control. This medication is a narcotic. It's best taken with food, as nausea can result if taken on an empty stomach. Don't operate machinery or drive within six hours of taking this medication. Do not combine this medicine with alcohol, or with any medication which can cause sedation (such as cold tablets or sleeping pills) unless you get permission from the physician. Narcotics tend to cause constipation. If possible, drink plenty of fluids and eat a diet high in fiber and fruits. Please be aware that prescription narcotics also have the potential for abuse. People become addicted to these medications because of the general sense of wellbeing that they induce. This feeling along with a significant reduction in tension, anxiety, and aggression provides a stimulating seductive quality to these drugs. Once your pain is under control, we encourage you to discard your unused narcotics. MUSCLE RELAXERS: Muscle relaxing medications are usually prescribed for acute muscle spasm or injury to the neck and back. They are often combined with antiinflammatory pain medication for increased relief. You may stop the muscle relaxer when the pain and stiffness have improved. Start the medication again if spasms recur. Muscle relaxers may cause drowsiness, especially with the first dose. Do not operate machinery or drive while under the effects of the medication. Most muscle relaxers last up to 24 hours. Do not combine the medication with alcohol. ICE PACKS: Apply ice packs frequently against the painful area. Many different schedules are recommended, such as "20 minutes on, 20 minutes off" or "one hour ice, two hours rest." If you need to work, you may need to go longer between ice treatments. You should plan to have the area ice packed AT LEAST one fourth of the time. The ice should be applied over the wrap, tape, or splint, or over a layer of cloth -- not directly against the skin. Some ice bags have a built-in cloth and can be put directly on the skin. WARM PACKS: After approximately two days, apply gentle heat (such as a heating pad or hot water bottle) for about 20 to 30 minutes about every two hours -- at least four times daily. Warmth and elevation will help you make a more rapid recovery , and will ease the pain considerably. Do not use HOT heat, and never apply heat for longer than 30 minutes. The continuous heat can invisibly damage skin and muscles -- even when no burn is seen on the surface. Damaged muscles can make you MORE sore. FOLLOW-UP CARE: If you have been referred to a physician for follow-up care, call the physician s office for an appointment as you were instructed or within the next two days. If you experience worsening or a significant change in your symptoms, notify the physician immediately or return to the Emergency Department at any time for re-evaluation. Please take medications as prescribed. You were given a dose of Toradol intramuscularly and Decadron intramuscularly as you have stated that you are okay with taking NSAIDs as long as they are not by mouth. Prescriptions: Lidocaine [Lidoderm 5% (700 mg) Transdermal Patch] 1 patch TP DAILY #30 adh..patch Tizanidine HCl [Zanaflex 4 Mg Tablet] 4 mg PO TID PRN 5 Days #15 tablet PRN Reason: Muscle Spasms Referrals: JAMES REINA MD [Primary Care Provider] - Follow up as needed
[2018-03-29 11:23] VITALS: BP 122/73
== END 2018-03-29 11:23 | disposition home or self-care (01) ==
LOC: ER 10:12
DX: S39.012A Strain of muscle, fascia and tendon of lower back, initial encounter (principal); M79.604 Pain in right leg; M79.605 Pain in left leg; X58.XXXA Exposure to other specified factors, initial encounter
CPT/HCPCS: 99283; 96372; 81001; A9270 ×2; J1885; J1100

== ENCOUNTER 2018-04-01 15:13 | Emergency (ER) | payer MEDICARE ==
[2018-04-01 15:25] VITALS: BP 120/68
[2018-04-01] MEDS ORDERED: DEXAMETHASONE SOD PHOS INJ 10 MG/1 ML VIAL IM ONE (17:56)
[2018-04-01] MEDS ORDERED: LIDOCAINE 5% (700 MG) TRANSDERMAL ADH..PATCH TP ONE (17:56)
[2018-04-01] MEDS ORDERED: HYDROCODONE/ACETAMINOPHEN 7.5-325 MG TABLET PO ONE (17:56)
--- NOTE | 2018-04-01 18:02 | ER Document Report ---
HPI - HPI Time Seen by Provider: 04/01/18 17:47 Pain Level: 4 Notes: Patient is a 47-year-old female with a history of gastric bypass who presents to the ED complaining of re-exacerbation of her lower back pain. Patient states that she was evaluated a few days ago and was given medicines at that time which did improve her back pain. Patient states that she is working out in the yard yesterday and re-exacerbated her low back pain. Patient states that the pain does not radiate. She was unable to fill the Lidoderm prescription because of expense so she picked up [id number] ones. Patient states that she try to get scheduled with her primary care provider today, but they will not take her until the . She is otherwise eating and drinking without difficulty. She is urinating normally and having normal bowel movements. She is able to ambulate without any difficulties as well. Patient is also wondering if she can have another prescription for narcotics as she was given a dispense pack a few days ago. No history of spinal abscess or surgery/ procedures. Denies IV drug abuse. Denies any headache, fever, URI, sore throat , chest pain, palpitations, syncope, cough, shortness of breath, wheeze, dyspnea , abdominal pain, nausea/vomiting/diarrhea, urinary retention, dysuria, hematuria, loss of control of bowel or bladder, numbness/tingling, saddle anesthesia, muscle paralysis/weakness, or rash. - ROS Systems Reviewed and Negative: Yes All other systems reviewed and negative - REPRODUCTIVE Reproductive: DENIES: : Past Medical History - Social History Smoking Status: Unknown if Ever Smoked Family History: Reviewed & Not Pertinent, Hypertension - Past Medical History Cardiac Medical History: Reports: Hx Atrial Fibrillation, Hx Congestive Heart Failure, Hx Heart Attack Renal/ Medical History: Denies: Hx Peritoneal Dialysis Psychiatric Medical History: Reports: Hx Bipolar Disorder Denies: Hx Depression Past Surgical History: Reports: Hx Abdominal Surgery - gastric bypass, Hx Appendectomy, Hx Cholecystectomy, Hx Hysterectomy, Hx Orthopedic Surgery - shoulder x2, implant in back - Immunizations Hx Pneumococcal Vaccination: 06/16/17 Vertical Provider Document - CONSTITUTIONAL Agree With Documented VS: Yes Notes: PHYSICAL EXAMINATION: GENERAL: Well-appearing, well-nourished and in no acute distress. LUNGS: Breath sounds clear to auscultation bilaterally and equal. No wheezes rales or rhonchi. HEART: Regular rate and rhythm without murmurs, rubs, gallops. ABDOMEN: Soft, nontender, nondistended abdomen. No guarding, no rebound. No masses appreciated. Normal bowel sounds present. No CVA tenderness bilaterally. No pulsatile mass Musculoskeletal: LE's b/l: FROM to passive/active. Strength 5+/5. No deficits noted. No bony tenderness of extremities. Back: FROM to passive/active. Strength 5+/5. No vertebral point tenderness, stepoffs, or deformities. No other bony tenderness, erythema, swelling, or ecchymosis. SLR negative b/l. + mild tenderness to the L-paraspinal mm b/l. Mild spasming. + mild rt SI jt tenderness. No foot drop Extremities: No cyanosis, clubbing, or edema b/l. Peripheral pulses 2+. Capillary refill less than 2 seconds. NEUROLOGICAL: Normal speech, normal gait. Normal sensory, motor exams. Reflexes 2+ b/l. PSYCH: Normal mood, normal affect. SKIN: Warm, Dry, normal turgor, no rashes or lesions noted. - INFECTION CONTROL TRAVEL OUTSIDE OF THE [place] IN LAST 30 DAYS: No Course - Re-evaluation Re-evalutation: 04/01/18 17:59 Patient is an afebrile, well-hydrated, 47-year-old female who presents to the ED with acute low back pain. Vitals are acceptable. PE is otherwise unremarkable for any focal neurological deficits. Pt declined toradol at this time. Patient was given Decadron and Lidoderm patch. She has no significant tachycardia, tachypnea, or hypoxia. She is nontoxic-appearing and is tolerating p.o. without difficulties. There are no signs of infection. No other red flag symptoms noted. No other labs or imaging warranted at this time based on H&P. Low suspicion for any meningitis, fracture, expanding/ruptured AAA, cauda equina syndrome, epidural mass lesion/abscess, herniated disc causing severe spinal stenosis, or other systemic infection at this time. Patient is aware that this condition can change from initial presentation and that she needs monitor symptoms closely for any acute changes. I will send her home with a prescription for voltaren (cannot take PO NSAIDs due to bypass). Conservative measures otherwise for symptoms. Recheck with your PCM in 3-5 days. Consider consult with orthopedic/physical therapy. Return to the ED with any worsening/concerning symptoms otherwise as reviewed discharge. Patient is in agreement. - Vital Signs Vital signs: Temp Pulse Resp BP Pulse Ox 97.5 F 85 16 120/68 98 04/01/18 15:20 04/01/18 15:20 04/01/18 15:20 04/01/18 15:20 04/01/18 15:20 Discharge - Discharge Clinical Impression: Low back pain Qualifiers: Chronicity: acute Back pain laterality: bilateral Sciatica presence: without sciatica Qualified Code(s): M54.5 - Low back pain Condition: Stable Disposition: HOME, SELF-CARE Instructions: Low Back Pain ([facility]) Additional Instructions: Rest, Ice Tylenol/ibuprofen as needed Light stretches daily Strength exercises as able Moist heat and massage may help F/u with your PCP in 3-5 days for a recheck Consider consult(s) with Orthopedics/physical therapy for ongoing/worsening symptoms Return to the ED with any worsening symptoms and/or development of fever, headache, chest pain, palpitations, syncope, shortness of breath, trouble breathing, abdominal pain, n/v/d, blood in stool/urine, loss of control of bowel /bladder, urinary retention, muscle weakness/paralysis, saddle anesthesia, numbness/tingling, or other worsening symptoms that are concerning to you. Prescriptions: Diclofenac Sodium [Voltaren] 4 gm TP QID PRN #100 gel..gm. PRN Reason: Referrals: JAMES REINA MD [Primary Care Provider] - Follow up in 3-5 days [facility] [Provider Group] - Follow up as needed
== END 2018-04-01 18:50 | disposition home or self-care (01) ==
LOC: ER 15:13
DX: M54.5 Low back pain (principal); I48.91 Unspecified atrial fibrillation; I50.9 Heart failure, unspecified; I25.2 Old myocardial infarction; Z98.84 Bariatric surgery status; Z90.49 Acquired absence of other specified parts of digestive tract; Z90.710 Acquired absence of both cervix and uterus
CPT/HCPCS: 99283; 96372; J1100; A9270

== ENCOUNTER 2018-07-02 19:21 | Emergency (ER) | payer MEDICARE ==
[2018-07-02 19:33] VITALS: BP 134/75
[2018-07-02] MEDS ORDERED: KETOROLAC TROMETHAMINE 60 MG/2 ML SDV IM ONE (19:58)
--- NOTE | 2018-07-02 19:58 | ER Document Report ---
HPI - HPI Patient complains to provider of: chronic back pain Time Seen by Provider: 07/02/18 19:49 Onset: Other - thursday Onset/Duration: Persistent Quality of pain: Achy Severity: Severe Pain Level: 4 Context: Patient presents to the emergency department with complaints of right-sided lower back pain. She reports pain radiates down her right leg. Patient has history of chronic back pain. She has been to this emergency department several times for same complaint. Patient reports that she lives in [place] and has just moved here to be with her son who was in the . She is not been accepted to a primary care provider yet. She denies bowel or urinary incontinence or retention. She denies numbness or tingling. She denies history of IV drug use. Patient also denies trauma. She reports she just woke up it was hurting. 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 She denies fever vomiting diarrhea. She mentions something about a kidney stone but reports no pain with void. Her flank is not hurting. Associated Symptoms: None Exacerbated by: Standing - Sitting to standing, Movement Relieved by: Denies Similar symptoms previously: Yes Recently seen / treated by doctor: No - REPRODUCTIVE Reproductive: DENIES: : Past Medical History - General Information source: Patient - Social History Smoking Status: Unknown if Ever Smoked Cigarette use (# per day): No Frequency of alcohol use: None Drug Abuse: None Lives with: Family Family History: Reviewed & Not Pertinent, Hypertension Patient has suicidal ideation: No Patient has homicidal ideation: No - Past Medical History Cardiac Medical History: Reports: Hx Atrial Fibrillation, Hx Congestive Heart Failure, Hx Heart Attack - x 3 Renal/ Medical History: Denies: Hx Peritoneal Dialysis GI Medical History: Reports: Hx Gastroesophageal Reflux Disease Psychiatric Medical History: Reports: Hx Bipolar Disorder Denies: Hx Depression Past Surgical History: Reports: Hx Abdominal Surgery - gastric bypass, Hx Appendectomy, Hx Cholecystectomy, Hx Hysterectomy, Hx Orthopedic Surgery - shoulder x2, implant in back - Immunizations Hx Pneumococcal Vaccination: 06/16/17 Vertical Provider Document - CONSTITUTIONAL Agree With Documented VS: Yes Exam Limitations: No Limitations General Appearance: WD/WN, Mild Distress - Patient winces when moving. - INFECTION CONTROL TRAVEL OUTSIDE OF THE U[place]S. IN LAST 30 DAYS: No - HEENT HEENT: Atraumatic, Normocephalic - NECK Neck: Supple - RESPIRATORY Respiratory: Breath Sounds Normal, No Respiratory Distress - CARDIOVASCULAR Cardiovascular: Regular Rate - GI/ABDOMEN Gastrointestinal: Abdomen Soft, Abdomen Non-Tender - BACK Back: Normal Inspection - No obvious deformity no swelling no erythema warmth. Patient is very tender to touch on the right lower back /buttocks. Good distal movement and sensation good reflexes. No weakness noted patient complains of pain from sitting to standing position. She also complains of pain when crossing her right leg over her left. negative: CVA Tenderness-Right, CVA Tenderness-Left - MUSCULOSKELETAL/EXTREMETIES Musculoskeletal/Extremeties: CAM AYON - NEURO Level of Consciousness: Awake, Alert, Appropriate Motor/Sensory: No Motor Deficit Deep Tendon Reflexes: 2+ - DERM Integumentary: Warm, Dry Adult Front & Back Diagram: 1 - Reports area tender to touch 2 - reports pain radiates across right buttock Course - Re-evaluation Re-evalutation: 07/02/18 19:51 Patient presents with flareup of her chronic back pain. She is nontoxic looking. She denies urinary bowel incontinence or retention. She denies numbness or tingling. Vital signs are stable. Patient is nontoxic looking. We discussed other ways to help with the back pain to include heat packs massage. Very low suspicion of any meningitis spinal abscess cauda equina or AAA. She declined lidocaine patches. Patient accepted trial Toradol injection. We discussed the importance of follow-up with a primary care provider and\or pain management. I will give patient a list of both for resource. Patient is aware of red flags of back pain. Dictation of this chart was performed using voice recognition software; therefore, there may be some unintended grammatical errors. - Vital Signs Vital signs: Temp Pulse Resp BP Pulse Ox 98.6 F 56 L 18 134/75 H 98 07/02/18 19:30 07/02/18 19:30 07/02/18 19:30 07/02/18 19:30 07/02/18 19:30 Discharge - Discharge Clinical Impression: Chronic low back pain Qualifiers: Back pain laterality: right Sciatica presence: unspecified whether sciatica present Qualified Code(s): M54.5 - Low back pain Condition: Stable Disposition: HOME, SELF-CARE Instructions: Family Physicians / Practices, Low Back Pain ([facility]), Pain Management, Toradol Injection ([facility]), Warm Packs ([facility]) Additional Instructions: *You have been evaluated for chronic low back pain *You have received a toradol injection for pain *Rest/Ice packs and heat packs as indicated *Follow up with a primary care provider or pain management within one week *Return to ED for worsening condition, changes, needs, increased pain, concerns Referrals: JAMES REINA MD [Primary Care Provider] - Follow up in 1 week [facility] [Provider Group]
== END 2018-07-02 20:59 | disposition home or self-care (01) ==
LOC: ER 19:21
DX: G89.29 Other chronic pain (principal); M54.5 Low back pain; Z98.84 Bariatric surgery status
CPT/HCPCS: 99283; 96372; J1885

== ENCOUNTER 2018-07-28 18:46 | Emergency (ER) | payer MEDICARE ==
--- NOTE | 2018-07-28 19:46 | ER Document Report ---
ED Medical Screen (RME) - General Chief Complaint: Shortness Of Breath Stated Complaint: SHORTNESS OF BREATH, LEG SWELLING Time Seen by Provider: 07/28/18 19:44 TRAVEL OUTSIDE OF THE U.S. IN LAST 30 DAYS: No - HPI Notes: 07/28/18 19:44 Patient presented with sudden onset of shortness of breath on the right leg swelling. Patient also complained of right leg pain. Physical exam is unremarkable except for right leg tenderness to palpation and edema. - Related Data Allergies/Adverse Reactions: ciprofloxacin [From Cipro] Allergy (Verified 07/28/18 18:51) NSAIDS (Non-Steroidal Anti-Inflamma Allergy (Verified 07/28/18 18:51) steroids Allergy (Uncoded 07/28/18 18:51) Past Medical History - Past Medical History Cardiac Medical History: Reports: Hx Atrial Fibrillation, Hx Congestive Heart Failure, Hx Heart Attack - x 3 Renal/ Medical History: Denies: Hx Peritoneal Dialysis GI Medical History: Reports: Hx Gastroesophageal Reflux Disease Psychiatric Medical History: Reports: Hx Bipolar Disorder Denies: Hx Depression Past Surgical History: Reports: Hx Abdominal Surgery - gastric bypass, Hx Appendectomy, Hx Cholecystectomy, Hx Hysterectomy, Hx Orthopedic Surgery - shoulder x2, implant in back - Immunizations History of Influenza Vaccine for 02/2017 - 07/2017 Season: Yes Influenza Administration Date for 02/2017 - 07/2017 Season: 06/16/17 Physical Exam - Vital signs Vitals: Temp Pulse Resp BP Pulse Ox 97.9 F 99 18 103/62 98 07/28/18 18:56 07/28/18 18:56 07/28/18 18:56 07/28/18 18:56 07/28/18 18:56 Course - Vital Signs Vital signs: Temp Pulse Resp BP Pulse Ox 97.9 F 99 18 103/62 98 07/28/18 18:56 07/28/18 18:56 07/28/18 18:56 07/28/18 18:56 07/28/18 18:56
[2018-07-28 20:16] LABS: ABSOLUTE BASOPHILS # (AUTO) 0.1 10^3/uL (0.0-0.2); ABSOLUTE EOSINOPHILS # (AUTO) 0.1 10^3/uL (0.0-0.6); ABSOLUTE LYMPHOCYTES (AUTO) 2.7 10^3/uL (0.5-4.7); ABSOLUTE MONOCYTES (AUTO) 0.8 10^3/uL (0.1-1.4); ABSOLUTE NEUT (AUTO) 6.1 10^3/uL (1.7-8.2); BASOPHILS % (AUTO) 0.9 % (0-2); EOSINOPHILS % (AUTO) 1.3 % (0-6); HEMATOCRIT 32.7 % (36.0-47.0); HEMOGLOBIN 10.7 g/dL (12.0-15.5); LYMPHOCYTES % (AUTO) 27.2 % (13-45); MEAN CORPUSCULAR HEMOGLOBIN 26.4 pg (27.0-33.4); MEAN CORPUSCULAR HGB CONC 32.8 g/dL (32.0-36.0); MEAN CORPUSCULAR VOLUME 81 fl (80-97); MONOCYTES % (AUTO) 7.9 % (3-13); PLATELET COUNT 283 10^3/uL (150-450); RED BLOOD COUNT 4.06 10^6/uL (3.72-5.28); SEGMENTED NEUTROPHILS % (AUTO) 62.7 % (42-78); TOTAL CELLS COUNTED % (AUTO) 100 %; WHITE BLOOD COUNT 9.8 10^3/uL (4.0-10.5)
[2018-07-28 20:23] LABS: INTERNATIONAL RATION (INR) 0.98; PROTHROMBIN TIME 13.5 SEC (11.4-15.4)
[2018-07-28 20:24] LABS: PARTIAL THROMBOPLASTIN TIME 36.5 SEC (23.5-35.8)
[2018-07-28 20:26] LABS: D-DIMER 0.98 ug/mL (0.00-0.50)
[2018-07-28 20:29] LABS: ALANINE AMINOTRANSFERASE 16 U/L (9-52); ALBUMIN 4.1 g/dL (3.5-5.0); ALKALINE PHOSPHATASE 107 U/L (38-126); ANION GAP 10 (5-19); ASPARTATE AMINO TRANSFERASE 28 U/L (14-36); BILIRUBIN,DIRECT 0.2 mg/dL (0.0-0.4); BILIRUBIN,TOTAL 0.2 mg/dL (0.2-1.3); BLOOD UREA NITROGEN 21 mg/dL (7-20); CALCIUM 9.7 mg/dL (8.4-10.2); CARBON DIOXIDE 31 mmol/L (22-30); CHLORIDE 99 mmol/L (98-107); CREATINE KINASE 154 U/L (30-135); GLUCOSE 111 mg/dL (75-110); POTASSIUM 4.1 mmol/L (3.6-5.0); SODIUM 139.5 mmol/L (137-145)
[2018-07-28 20:41] LABS: CREATINE KINASE MB 0.65 ng/mL (<4.55); NT PRO BNP 207 pg/mL (<125)
--- NOTE | 2018-07-28 20:47 | RADIOLOGY REPORT (SQ) ---
EXAM DESCRIPTION: XR CHEST 1 VIEW COMPLETED DATE/TME: 07/28/2018 19:43 CLINICAL HISTORY: 47 years, Female, SOB Findings: The heart is not enlarged. Aorta is within normal limits. No consolidation or pleural effusion. No pulmonary edema or pneumothorax. IMPRESSION: No acute disease.
[2018-07-28 20:52] LABS: TROPONIN I < 0.012 ng/mL
--- NOTE | 2018-07-29 02:09 | RADIOLOGY REPORT (SQ) ---
CLINICAL HISTORY: SOB; positive d-dimer(0.98) CREAT 1.08 COMPARISON: None. TECHNIQUE: CT CHEST ANGIOGRAPHY WITHOUT THEN WITH IV CONTRAST on 07/29/2018 1:33 AM CDT. MIPS reconstructions were generated. This exam was performed according to our departmental dose-optimization program, which includes automated exposure control, adjustment of the mA and/or kV according to patient size and/or use of iterative reconstruction technique. MIP images were generated. FINDINGS: Thoracic aorta is normal in course and caliber without aneurysm or dissection. Pulmonary arteries are adequately opacified without acute or chronic filling defects. The heart is normal in size. There is no pericardial effusion. Intrathoracic lymph nodes are not enlarged. There is no pleural effusion, pleural thickening or pneumothorax. Central airways are patent. Lungs are clear with no consolidation, mass or interstitial lung disease. There are postoperative changes stomach. Cholecystectomy was performed. There are no acute osseous findings. No suspicious bony lesions. IMPRESSION: No aortic dissection or aneurysm. No pulmonary embolus.
--- NOTE | 2018-07-29 03:25 | RADIOLOGY REPORT (SQ) ---
EXAM DESCRIPTION: US EXTREMITY VEINS UNILATERAL COMPLETED DATE/TME: 07/28/2018 19:43 CLINICAL HISTORY: 47 years, Female, Right leg pain and swelling COMPARISON: None. TECHNIQUE: Grayscale and Doppler images of the right lower extremity. LIMITATIONS: None. FINDINGS: The veins of the right lower extremity demonstrate normal flow, compression and augmentation. The left CFV and SFJ were imaged with no evidence of a DVT. IMPRESSION: No evidence of a right lower extremity DVT copyright 2010 [employer]- All Rights Reserved
--- NOTE | 2018-07-29 04:55 | ER Document Report ---
ED General - General Chief Complaint: Shortness Of Breath Stated Complaint: SHORTNESS OF BREATH, LEG SWELLING Time Seen by Provider: 07/28/18 19:44 Notes: Patient is a 47-year-old female who presents the emergency department with a chief complaint of shortness of breath, right lower extremity swelling, pain, weakness. She has had her symptoms for the past week. Her shortness of breath started 2 days ago. She has a history of a DVT and a PE in the past. She does admit to smoking 1/2 pack a day. Her past medical history also includes CHF. She was admitted a year ago for a CHF exacerbation. She has not seen a primary care provider in regards to her issues. Due to the change of her insurance and to moving here to [place], the patient was off her Eliquis for almost a month and restarted her Eliquis 2 days ago. Her next primary care visit is in the beginning of August. TRAVEL OUTSIDE OF THE U.S. IN LAST 30 DAYS: No - Related Data Allergies/Adverse Reactions: ciprofloxacin [From Cipro] Allergy (Verified 07/28/18 18:51) NSAIDS (Non-Steroidal Anti-Inflamma Allergy (Verified 07/28/18 18:51) steroids Allergy (Uncoded 07/28/18 18:51) Past Medical History - Social History Smoking Status: Unknown if Ever Smoked Family History: Reviewed & Not Pertinent, Hypertension Patient has suicidal ideation: No Patient has homicidal ideation: No - Past Medical History Cardiac Medical History: Reports: Hx Atrial Fibrillation, Hx Congestive Heart Failure, Hx Heart Attack - x 3 Renal/ Medical History: Denies: Hx Peritoneal Dialysis GI Medical History: Reports: Hx Gastroesophageal Reflux Disease Psychiatric Medical History: Reports: Hx Bipolar Disorder Denies: Hx Depression Past Surgical History: Reports: Hx Abdominal Surgery - gastric bypass, Hx Appendectomy, Hx Cholecystectomy, Hx Hysterectomy, Hx Orthopedic Surgery - shoulder x2, implant in back - Immunizations Hx Pneumococcal Vaccination: 06/16/17 Review of Systems - Review of Systems Notes: REVIEW OF SYSTEMS: CONSTITUTIONAL : Denies recent illness. Denies recent unintentional weight loss. Denies fever, chills, or sweats. EENT: Denies eye, ear, throat, or mouth pain, discharge, or symptoms. Denies nasal or sinus congestion. CARDIOVASCULAR: Denies chest pain. RESPIRATORY: See HPI GASTROINTESTINAL: Denies nausea, vomiting, and diarrhea. Denies abdominal pain. Denies constipation. GENITOURINARY: Denies difficulty urinating, burning, blood in urine, urgency or frequency. MUSCULOSKELETAL: See HPI SKIN: Denies rash, itchiness, or lesions HEMATOLOGIC : Denies easy bruising or bleeding. LYMPHATIC: Denies swollen, painful, enlarged glands. NEUROLOGICAL: Denies no numbness or tingling denies weakness. Denies headache. Denies altered mental status. Denies alteration in speech. PSYCHIATRIC: Denies stress, anxiety, alteration in sleep patterns, or depression. All other systems reviewed and negative. Physical Exam - Vital signs Vitals: Temp Pulse Resp BP Pulse Ox 97.9 F 99 18 103/62 98 07/28/18 18:56 07/28/18 18:56 07/28/18 18:56 07/28/18 18:56 07/28/18 18:56 - Notes Notes: PHYSICAL EXAMINATION: GENERAL: Appears well, healthy, well-nourished, no acute distress. HEAD: Normocephalic, atraumatic. EYES: PERRL, conjunctiva normal, all extraocular movements intact, sclera nonicteric ENT: Moist mucous membranes. NECK: Supple, no noticeable swelling, redness, rash. Normal range of motion. LUNGS: Equal breath sounds bilaterally and clear to auscultation. No wheezes rales or rhonchi. CARDIOVASCULAR: S1-S2, regular rate, regular rhythm. Radial pulses 2+, normal. 1+ pitting edema to bilateral lower extremities. ABDOMEN: Normoactive bowel sounds. Soft, nontender, no guarding, no rebound tenderness, and no masses palpated. EXTREMITIES: Normal strength and range of motion, no pitting or edema. No cyanosis. NEUROLOGICAL: Moves all extremities upon command. Strength 5/5 in all extremities. PSYCH: Normal mood, normal affect. SKIN: Warm, dry. No rash, lesions, ulcerations noted. Normal skin turgor. Course - Re-evaluation Re-evalutation: 07/29/18 01:30 The patient's d-dimer is elevated, suspicious of a possible PE. She will be sent for CTA of the chest to rule out pulmonary emboli. We are also awaiting her results of her venous Doppler study. Her labs are unremarkable. Her troponin is negative, ruling out any ACS. 07/29/18 04:56 The patient's CTA of the chest is negative for any acute PE. Her lower extremity ultrasound is negative for any DVT. I have instructed the patient to continue her Eliquis and do not miss a dose. She also admitted to increasing her Lasix dose to 80 mg a few days last week. I have instructed her that she needs to continue the normal regimen that she is on and follow-up with her primary care when her appointment is in August. I have also instructed her that she needs to decrease her amount of smoking. Strict follow-up precautions were given. Verbal discharge instructions were given to the patient. They verbalized understanding. They are stable for discharge. - Vital Signs Vital signs: Temp Pulse Resp BP Pulse Ox 97.9 F 99 18 118/53 L 100 07/28/18 18:56 07/28/18 18:56 07/29/18 03:24 07/29/18 03:24 07/29/18 03:44 - Laboratory Result Diagrams: 07/28/18 19:50 07/28/18 19:50 Laboratory results interpreted by me: 07/28/18 07/28/18 07/28/18 19:50 19:50 19:50 Hgb 10.7 L Hct 32.7 L MCH 26.4 L RDW 21.0 H APTT 36.5 H D-Dimer 0.98 H Carbon Dioxide 31 H BUN 21 H Est GFR (Non-Af Amer) 55 L Glucose 111 H Creatine Kinase 154 H NT-Pro-B Natriuret Pep Total Protein 6.0 L 07/28/18 19:50 Hgb Hct MCH RDW APTT D-Dimer Carbon Dioxide BUN Est GFR (Non-Af Amer) Glucose Creatine Kinase NT-Pro-B Natriuret Pep 207 H Total Protein Discharge - Discharge Clinical Impression: Shortness of breath, Swelling of lower extremity Condition: Stable Additional Instructions: You were seen today in the emergency department for shortness of breath, bilateral lower leg swelling, pain, and weakness. The CT did not show a blood clot in your lungs and the ultrasound did not show blood clots in your legs. Please continue to take your Eliquis. Please continue to take your Lasix. Please follow-up with your primary care provider in regards to this visit. If you develop shortness of breath, difficulty breathing, chest pain, or any symptoms that are worrisome to you, please return to the department.
[2018-07-29 05:05] VITALS: BP 105/61
--- NOTE | 2018-07-29 08:03 | EKG REPORT ---
SEVERITY:- ABNORMAL ECG - SINUS RHYTHM MULTIPLE ATRIAL PREMATURE COMPLEXES BORDERLINE T ABNORMALITIES, ANT-LAT LEADS : Confirmed by: Kennedy Goode MD 29-Jul-2018 08:02:46
== END 2018-07-29 05:10 | disposition home or self-care (01) ==
LOC: ER 18:46
DX: I50.9 Heart failure, unspecified (principal); M79.89 Other specified soft tissue disorders; R06.02 Shortness of breath; R79.1 Abnormal coagulation profile; I48.91 Unspecified atrial fibrillation; F17.200 Nicotine dependence, unspecified, uncomplicated; I25.2 Old myocardial infarction; Z86.718 Personal history of other venous thrombosis and embolism; Z86.711 Personal history of pulmonary embolism
CPT/HCPCS: 36415; 71045; 71275; 80053; 82550; 82553; 83880; 84484; 85025; 85379; 85610; 85730; 93005; 93010; 93971; 99285

== ENCOUNTER 2018-08-01 15:48 | Emergency (ER) | payer MEDICARE ==
--- NOTE | 2018-08-01 16:35 | EKG REPORT ---
SEVERITY:- ABNORMAL ECG - SINUS RHYTHM MULTIPLE ATRIAL PREMATURE COMPLEXES : Confirmed by: Kennedy Goode MD 01-Aug-2018 16:35:09
--- NOTE | 2018-08-01 16:43 | ER Document Report ---
ED Cardiac - General Chief Complaint: Chest Pain Stated Complaint: CHEST PAIN Time Seen by Provider: 08/01/18 16:36 Information source: Patient Notes: 47-year-old female that presents today stating around 1 week of some shortness of breath and some intermittent nonradiating chest discomfort. She denies any aggravating or relieving factors. She does state some mild runny nose, congestion, and cough without fevers or vomiting. Patient has had some intermittent lower extremity swelling. She describes the pain as "irritating". No radiation. Patient was seen and evaluated 3 days ago for this. She had an unremarkable BNP, 2 troponins, lower extremity Doppler, and unremarkable CTA of the chest. Patient had been off Eliquis until around 1 week ago. Patient has been on Eliquis for the last 7 days. Patient states she believes she has had "3 heart attacks" in the past. However she has never received a cardiac catheterization in her history. TRAVEL OUTSIDE OF THE [place].S. IN LAST 30 DAYS: No - Related Data Allergies/Adverse Reactions: ciprofloxacin [From Cipro] Allergy (Verified 07/28/18 18:51) NSAIDS (Non-Steroidal Anti-Inflamma Allergy (Verified 07/28/18 18:51) steroids Allergy (Uncoded 07/28/18 18:51) Past Medical History - Social History Smoking Status: Former Smoker Cigarette use (# per day): Yes Family History: Reviewed & Not Pertinent, Hypertension Patient has suicidal ideation: No Patient has homicidal ideation: No - Past Medical History Cardiac Medical History: Reports: Hx Atrial Fibrillation, Hx Congestive Heart Failure, Hx Heart Attack - x 3 Renal/ Medical History: Denies: Hx Peritoneal Dialysis GI Medical History: Reports: Hx Gastroesophageal Reflux Disease Psychiatric Medical History: Reports: Hx Bipolar Disorder Denies: Hx Depression Past Surgical History: Reports: Hx Abdominal Surgery - gastric bypass, Hx Appendectomy, Hx Cholecystectomy, Hx Hysterectomy, Hx Orthopedic Surgery - shoulder x2, implant in back - Immunizations Hx Pneumococcal Vaccination: 06/16/17 Review of Systems - Review of Systems Constitutional: denies: Fever EENT: Nose congestion, Nose discharge. denies: Eye discharge Respiratory: Cough, Short of breath Gastrointestinal: denies: Vomiting Genitourinary: denies: Dysuria Musculoskeletal: denies: Leg swelling Skin: Other - no hives. denies: Rash Neurological/Psychological: Other - no slurred speech -: Yes All other systems reviewed and negative Physical Exam - Vital signs Vitals: Temp Pulse Resp BP Pulse Ox 98.1 F 84 18 112/79 100 08/01/18 16:08 08/01/18 16:08 08/01/18 16:08 08/01/18 16:08 08/01/18 16:08 Notes: Reviewed vital signs and nursing note as charted by RN. CONSTITUTIONAL: Alert and oriented and responds appropriately to questions. Well-appearing; well-nourished HEAD: Normocephalic; atraumatic EYES: PERRL; Conjunctivae clear, sclerae non-icteric ENT: Normal nose; bilateral nonpurulent nasal rhinorrhea; moist mucous membranes; pharynx without lesions noted NECK: Supple without meningismus; non-tender; no cervical lymphadenopathy, no masses CARD: Regular rate and rhythm; no murmurs; symmetric distal pulses RESP: Normal chest excursion without splinting or tachypnea; breath sounds clear and equal bilaterally; no wheezes, no rhonchi, no rales ABD/GI: Normal bowel sounds; non-distended; soft, non-tender; no palpable organomegaly or masses BACK: The back appears normal and is non-tender to palpation EXT: Normal ROM in all joints; non-tender to palpation; 1+ pitting edema to bilateral shins edema SKIN: No acute lesions noted NEURO: CN 2-12 intact; 5/5 bilateral upper and lower extremity strength with sensation intact to light touch PSYCH: The patient's mood and manner are appropriate. Grooming and personal hygiene are appropriate. Course - Re-evaluation Re-evalutation: 08/01/18 16:43 Given the above history and physical examination we will order cardiac panel, BNP, x-ray of the chest, EKG, place the patient on the monitor. Given that the patient has been on Eliquis for the last 7 days with a negative CTA/DVT workup 3 days ago, I do not believe that this needs to be repeated. Patient is not tachycardic or hypoxic. Pain is nonspecific. No calf pain. Patient states her edema has greatly improved since being seen 3 days ago despite no medication changes. Patient was actually taking extra Lasix prior to being seen 3 days ago. EKG shows a heart rate of 84, normal sinus rhythm, PACs present, no ST elevations or depressions. 08/01/18 17:32 Troponin as recorded. BNP has improved. 08/01/18 17:38 Chest x-ray shows normal heart, normal mediastinum, no fractures, normal lung babin, no pneumothorax. - Vital Signs Vital signs: Temp Pulse Resp BP Pulse Ox 98.1 F 84 18 112/79 100 08/01/18 16:08 08/01/18 16:08 08/01/18 16:08 08/01/18 16:08 08/01/18 16:08 - Laboratory Result Diagrams: 08/01/18 16:20 08/01/18 16:20 Laboratory results interpreted by me: 08/01/18 16:20 Hgb 11.7 L Hct 35.7 L MCH 26.2 L RDW 20.7 H
[2018-08-01 17:11] LABS: ABSOLUTE BASOPHILS # (AUTO) 0.1 10^3/uL (0.0-0.2); ABSOLUTE EOSINOPHILS # (AUTO) 0.1 10^3/uL (0.0-0.6); ABSOLUTE MONOCYTES (AUTO) 0.7 10^3/uL (0.1-1.4); ABSOLUTE NEUT (AUTO) 4.2 10^3/uL (1.7-8.2); BASOPHILS % (AUTO) 1.6 % (0-2); HEMATOCRIT 35.7 % (36.0-47.0); HEMOGLOBIN 11.7 g/dL (12.0-15.5); MEAN CORPUSCULAR HEMOGLOBIN 26.2 pg (27.0-33.4); MEAN CORPUSCULAR HGB CONC 32.7 g/dL (32.0-36.0); MEAN CORPUSCULAR VOLUME 80 fl (80-97); MONOCYTES % (AUTO) 9.5 % (3-13); PLATELET COUNT 357 10^3/uL (150-450); RED BLOOD COUNT 4.44 10^6/uL (3.72-5.28); RED CELL DISTRIBUTION WIDTH 20.7 % (11.5-14.0); SEGMENTED NEUTROPHILS % (AUTO) 58.9 % (42-78); TOTAL CELLS COUNTED % (AUTO) 100 %; WHITE BLOOD COUNT 7.1 10^3/uL (4.0-10.5)
[2018-08-01 17:15] LABS: ANION GAP 9 (5-19); BLOOD UREA NITROGEN 19 mg/dL (7-20); CALCIUM 9.8 mg/dL (8.4-10.2); CARBON DIOXIDE 30 mmol/L (22-30); CHLORIDE 103 mmol/L (98-107); GLUCOSE 83 mg/dL (75-110); POTASSIUM 3.8 mmol/L (3.6-5.0); SODIUM 142.2 mmol/L (137-145)
[2018-08-01 17:27] LABS: NT PRO BNP 70 pg/mL (<125)
[2018-08-01 17:28] LABS: TROPONIN I < 0.012 ng/mL
--- NOTE | 2018-08-01 17:33 | RADIOLOGY REPORT (SQ) ---
EXAM DESCRIPTION: CHEST 2 VIEWS COMPLETED DATE/TIME: 08/01/2018 5:25 pm REASON FOR STUDY: : Cough, CP COMPARISON: 07/29/2018 EXAM PARAMETERS: NUMBER OF VIEWS: two views TECHNIQUE: Digital Frontal and Lateral radiographic views of the chest acquired. RADIATION DOSE: NA LIMITATIONS: none FINDINGS: LUNGS AND PLEURA: No opacities, masses or pneumothorax. No pleural effusion. MEDIASTINUM AND HILAR STRUCTURES: No masses or contour abnormalities. HEART AND VASCULAR STRUCTURES: Heart normal size. No evidence for failure. BONES: No acute findings. HARDWARE: Incompletely visualized spinal stimulator device. OTHER: No other significant finding. IMPRESSION: NO ACUTE RADIOGRAPHIC FINDING IN THE CHEST. TECHNICAL DOCUMENTATION: JOB ID: [id number] [employer]- All Rights Reserved Reading location - IP/workstation name: [email or web address]
[2018-08-01] MEDS ORDERED: IPRATROPIUM/ALBUTEROL 0.5-2.5 MG/3 ML AMPUL NEB ONE (18:52)
[2018-08-01] MEDS ORDERED: METHYLPREDNISOLONE ACETATE INJ 80 MG/1 ML VIAL IM ONE (18:52)
--- NOTE | 2018-08-01 18:53 | ER Document Report ---
ED General - General Chief Complaint: Chest Pain Stated Complaint: CHEST PAIN Time Seen by Provider: 08/01/18 16:36 Primary Care Provider: SHIV FRANCO MD [ACTIVE STAFF] - Follow up in 3-5 days Notes: Patient is a 47-year-old female that presents to the emergency department for chief complaint of shortness of breath, dyspnea on exertion. Patient states she is been having some intermittent chest pain, which she states she almost always has, and shortness of breath, but it has been worse more recently, she states she is having a hard time getting from the couch to the bathroom without feeling very short of breath and lightheaded. She has had a cough over the past several days as well that has been nonproductive. She currently denies having any significant pain. But she is concerned about her breathing. She was seen here 3 days ago, was worked up for possible DVT or PE, which she has a history of, she had duplex imaging, and CT of the chest which were negative. She is currently on Eliquis, she was off of it for a month, but it has been back on it for 1 week. Past Medical History: CHF, history of DVT, hypertension Past Surgical History: Denies any recent or pertinent surgical history. Social History: Admits to smoking cigarettes, denies alcohol or drug use. Family History: Reviewed and noncontributory for presenting illness Allergies: Reviewed, see documented allergy list. REVIEW OF SYSTEMS: Other than noted above, the 12 point review of systems was reviewed with the patient and were negative, all pertinent findings are included in the HPI. PHYSICAL EXAMINATION: Vital signs reviewed, nursing noted reviewed. GENERAL: Patient appears older than stated age, but in no acute distress HEAD: Atraumatic, normocephalic. EYES: Eyes appear normal, extraocular movements intact, sclera anicteric, conjunctiva are normal. ENT: nares patent, oropharynx clear without exudates. Moist mucous membranes. NECK: Normal range of motion, supple without lymphadenopathy LUNGS: Bilateral inspiratory and expiratory wheezing noted throughout all lung babin, no acute respiratory distress however. HEART: Regular rate and rhythm without murmurs ABDOMEN: Soft, nontender, normoactive bowel sounds. No rebound, guarding, or rigidity. No masses appreciated. EXTREMITIES: Nontender, good range of motion, no pitting or edema. NEUROLOGICAL: No focal neurological deficits. Moves all extremities spontaneously Motor and sensory grossly intact on exam. PSYCH: Normal mood, normal affect. SKIN: Warm, Dry, normal turgor, no rashes or lesions noted on exposed skin TRAVEL OUTSIDE OF THE [place] IN LAST 30 DAYS: No - Related Data Allergies/Adverse Reactions: ciprofloxacin [From Cipro] Allergy (Verified 07/28/18 18:51) NSAIDS (Non-Steroidal Anti-Inflamma Allergy (Verified 07/28/18 18:51) steroids Allergy (Uncoded 07/28/18 18:51) Past Medical History - General Information source: Patient - Social History Smoking Status: Former Smoker Cigarette use (# per day): Yes Family History: Reviewed & Not Pertinent, Hypertension Patient has suicidal ideation: No Patient has homicidal ideation: No - Past Medical History Cardiac Medical History: Reports: Hx Atrial Fibrillation, Hx Congestive Heart Failure, Hx Heart Attack - x 3 Renal/ Medical History: Denies: Hx Peritoneal Dialysis GI Medical History: Reports: Hx Gastroesophageal Reflux Disease Psychiatric Medical History: Reports: Hx Bipolar Disorder Denies: Hx Depression Past Surgical History: Reports: Hx Abdominal Surgery - gastric bypass, Hx Appendectomy, Hx Cholecystectomy, Hx Hysterectomy, Hx Orthopedic Surgery - shoulder x2, implant in back - Immunizations Hx Pneumococcal Vaccination: 06/16/17 Physical Exam - Vital signs Vitals: Temp Pulse Resp BP Pulse Ox 98.1 F 84 18 112/79 100 08/01/18 16:08 08/01/18 16:08 08/01/18 16:08 08/01/18 16:08 08/01/18 16:08 Course - Re-evaluation Re-evalutation: Patient seen and examined vital signs reviewed. Laboratory data and imaging were ordered as appropriate for the patient's presenting symptoms and complaint, with consideration of any critical or life threatening conditions that may be associated with their obtained history and exam as noted above. Patient was treated with DuoNeb breathing treatments, and IM Depo-Medrol 80 mg. Results were reviewed when available and demonstrated initial troponin negative, blood work otherwise unremarkable, chest x-ray negative. Patient's prior chart reviewed, negative CTA of the chest 3 days ago, negative duplex imaging of the lower extremities. Low suspicion for PE in this patient. Most likely bronchospasm, and likely underlying COPD that is been not diagnosed and the patient that smokes for most of her life. The patient was re-evaluated and was much improved after DuoNeb breathing treatments Evaluation was most consistent with acute bronchospasm, causing dyspnea, will dispense albuterol inhaler, patient given IM Depo-Medrol advised to follow-up with primary care Results were discussed with the patient at this point, after careful consideration I feel that that patient can be discharged from the emergency department, the patient was educated treatments and reasons to return to the emergency department based on their presumed diagnosis as noted above, they were advised to followup with a primary care physician in 2-3 days. Patient was agreeable to plan of care. *Note is created using voice recognition software and may contain spelling, syntax or grammatical errors. - Vital Signs Vital signs: Temp Pulse Resp BP Pulse Ox 98.9 F 84 23 H 110/64 96 08/01/18 17:00 08/01/18 16:08 08/01/18 17:00 08/01/18 17:00 08/01/18 17:00 - Laboratory Result Diagrams: 08/01/18 16:20 08/01/18 16:20 Laboratory results interpreted by me: 08/01/18 16:20 Hgb 11.7 L Hct 35.7 L MCH 26.2 L RDW 20.7 H - EKG Interpretation by Me Additional EKG results interpreted by me: EKG demonstrates sinus rhythm with a ventricular rate of 84 bpm, normal axis, QTC 469 ms, frequent PACs, no ST elevation, this is compared with the prior EKG from 07/28/2017, without significant change. Discharge - Discharge Clinical Impression: Acute bronchospasm Dyspnea Qualifiers: Dyspnea type: unspecified Qualified Code(s): R06.00 - Dyspnea, unspecified Chest pain Qualifiers: Chest pain type: unspecified Qualified Code(s): R07.9 - Chest pain, unspecified Condition: Stable Disposition: HOME, SELF-CARE Instructions: Bronchospasm ([facility]) Additional Instructions: Please use the inhaler, 2 puffs with the chamber, 6-10 breaths each time, at least 3-4 times daily for the next 5 days and then every 4 hours as needed afterwards, please follow-up with the primary care physician at [facility], try to call to move your appointment up, there is an additional primary care provider listed with your paperwork as well if needed. Prescriptions: Benzonatate [Tessalon Perles 100 mg Capsule] 100 mg PO Q8HP PRN #30 capsule PRN Reason: Cough Referrals: SHIV FRANCO MD [ACTIVE STAFF] - Follow up in 3-5 days
[2018-08-01] MEDS ORDERED: ALBUTEROL SULFATE HFA (90 MCG/PUFF) 8 GM MDI (1 MDI/ER DISP) IH ONE (20:48)
[2018-08-01 21:29] VITALS: BP 111/67
== END 2018-08-01 21:42 | disposition home or self-care (01) ==
LOC: ER 15:48
DX: J98.01 Acute bronchospasm (principal); R07.9 Chest pain, unspecified; R06.00 Dyspnea, unspecified; R42 Dizziness and giddiness; Z79.01 Long term (current) use of anticoagulants; I50.9 Heart failure, unspecified; I11.0 Hypertensive heart disease with heart failure; I25.2 Old myocardial infarction; I48.91 Unspecified atrial fibrillation; F17.210 Nicotine dependence, cigarettes, uncomplicated
CPT/HCPCS: 93005; 94640; 99285; 96372; 36415; 83735; 85025; 80048; 84484; 83880; 71046; 93010; J1040; J3490; A9270; J7620

== ENCOUNTER 2019-03-01 07:29 | Day surgery (SDC) | payer MEDICARE ==
[2019-02-22 09:55] LABS: APPEARANCE,URINE CLEAR; BILIRUBIN,URINE NEGATIVE (NEGATIVE); COLOR,URINE YELLOW; GLUCOSE, URINE NEGATIVE (NEGATIVE); KETONES,URINE NEGATIVE (NEGATIVE); LEUKOCYTE ESTERASE,URINE NEGATIVE (NEGATIVE); NITRITE,URINE NEGATIVE (NEGATIVE); PROTEIN,URINE 30 mg/dL (NEGATIVE); URINE SPECIFIC GRAVITY 1.019
[2019-02-22 10:58] LABS: HEMATOCRIT 39.9 % (36.0-47.0); HEMOGLOBIN 13.4 g/dL (12.0-15.5); MEAN CORPUSCULAR HEMOGLOBIN 28.6 pg (27.0-33.4); MEAN CORPUSCULAR HGB CONC 33.6 g/dL (32.0-36.0); MEAN CORPUSCULAR VOLUME 85 fl (80-97); PLATELET COUNT 229 10^3/uL (150-450); RED CELL DISTRIBUTION WIDTH 19.5 % (11.5-14.0); WHITE BLOOD COUNT 7.3 10^3/uL (4.0-10.5)
[2019-02-22 11:09] LABS: INTERNATIONAL RATION (INR) 1.03; PROTHROMBIN TIME 13.5 SEC (11.4-15.4)
--- NOTE | 2019-02-22 12:05 | RADIOLOGY REPORT (SQ) ---
EXAM DESCRIPTION: CHEST PA/LATERAL COMPLETED DATE/TIME: 02/22/2019 9:50 am REASON FOR STUDY: PRE-OP COMPARISON: PA and lateral views of the chest from 08/01/2018. EXAM PARAMETERS: NUMBER OF VIEWS: two views TECHNIQUE: Digital Frontal and Lateral radiographic views of the chest acquired. RADIATION DOSE: NA LIMITATIONS: none FINDINGS: LUNGS AND PLEURA: No consolidation, pleural effusion or pneumothorax. MEDIASTINUM AND HILAR STRUCTURES: No mediastinal or hilar contour abnormality. HEART AND VASCULAR STRUCTURES: The cardiac silhouette and pulmonary vasculature are within normal taylor its. BONES: No acute findings. HARDWARE: Spinal stimulator leads projecting at the level of the midthoracic spine. OTHER: No other finding. IMPRESSION: No acute cardiopulmonary process. TECHNICAL DOCUMENTATION: JOB ID: [id number] [employer]- All Rights Reserved Reading location - IP/workstation name: [email or web address]
--- NOTE | 2019-02-22 13:23 | EKG REPORT ---
SEVERITY:- ABNORMAL ECG - SINUS RHYTHM MULTIPLE ATRIAL PREMATURE COMPLEXES : Confirmed by: Kennedy Goode MD 22-Feb-2019 13:23:31
[~2019-03-01 07:29] MED LIST: CEFAZOLIN SODIUM 1 GM in DEXTROSE 5%-WATER 50 ML IV PRN; FENTANYL CITRATE INJ/PF 100 MCG/2 ML AMPUL ONE; LACTATED RINGERS 1000 ML IV PRN; MIDAZOLAM 2 MG/2 ML INJ ONE; PROPOFOL INJ 200 MG/20 ML VIAL IV ONE
[2019-03-01 08:16] LABS: INTERNATIONAL RATION (INR) 0.95; PROTHROMBIN TIME 12.7 SEC (11.4-15.4)
[2019-03-01] MEDS ORDERED: SODIUM BICARBONATE 4.2% INJ (2.5 MEQ/5 ML) VIAL ONE (09:03)
[2019-03-01] MEDS ORDERED: LIDOCAINE 1% INJ-PF (10 MG/ML) 30 ML SDV ONE (09:03)
[2019-03-01] MEDS ORDERED: BUPIVACAINE HCL 0.5%-EPI 1:200000 INJ/PF 30 ML VIAL ONE (09:04)
[2019-03-01] MEDS ORDERED: MIDAZOLAM 2 MG/2 ML INJ ONE (09:08)
[2019-03-01] MEDS ORDERED: DIPHENHYDRAMINE HCL 50 MG/ML VIAL IV PRN (09:37)
[2019-03-01] MEDS ORDERED: FENTANYL CITRATE INJ/PF 100 MCG/2 ML AMPUL IV PRN ×3 (09:37)
[2019-03-01] MEDS ORDERED: MORPHINE SULFATE 10 MG/ML INJ IV PRN (09:37)
[2019-03-01] MEDS ORDERED: MEPERIDINE HCL/PF INJ 25 MG/1 ML DISP.SYRIN IV PRN (09:37)
[2019-03-01] MEDS ORDERED: PROMETHAZINE HCL INJ 25 MG/1 ML VIAL IV PRN (09:37)
[2019-03-01] MEDS ORDERED: LIDOCAINE 1% INJ (10 MG/ML) 10 ML MDV INJ ONE (09:44)
[2019-03-01] MEDS ORDERED: BUPIVACAINE HCL 0.5%-EPI 1:200000 INJ/PF 30 ML VIAL INJ ONE (09:45)
[2019-03-01 12:49] VITALS: BP 102/64
--- NOTE | 2019-03-01 13:18 | Operative Report ---
Operative Report DATE OF SURGERY: 03/01/19 PREOPERATIVE DIAGNOSIS: Nonfunctioning spinal cord stimulator system POSTOPERATIVE DIAGNOSIS: Same OPERATION: Attempted battery replacement and revision SURGEON: TUSHAR MENDENHALL ANESTHESIA: LMAC TISSUE REMOVED OR ALTERED: None COMPLICATIONS: None none ESTIMATED BLOOD LOSS: None INTRAOPERATIVE FINDINGS: Broken wire with internal corrosion PROCEDURE: Date of Surgery: 03/01/2019 Preoperative Diagnosis: Nonfunctional battery at end of life Postoperative Diagnosis:Same Procedure: SCS Battery Replacement, incomplete Surgeon: Tushar Mendenhall MD Nurse Infection Control: Anesthesia: MAC Complications: None Procedure Detail: After obtaining informed consent and advising the patient of the risks and benefits, including serious neurological injury, bleeding and infection, allergic reaction and , the patient was taken to the operating room. The patient was placed comfortably in the prone position. Comfort was assessed visually and verbally. The patient was then prepped with chlorhexidine with a suitable drying time prior to drapping. The pulse generator was readily palpable and site marked. The previous incisional scar was anesthetized with 1% lidocaine with bicarbonate, followed by bupivacaine 0.25% with epinephrine. Sharp and blunt dissection were performed down to the pulse generator taking care to avoid the SCS wires. This was readily identified. Electrocautery was minimally necessary for hemostasis. The old generator was removed easily. The wires were inspected and 1 of the electrodes was found to have internal corrosion and the other electrode was found to have broken insulation at its insertion site of the battery the decision was made at this point not to remove anything but closed the wound as this was a plate electrode without any lead extensions. This would facet require a mini laminectomy which is not available here. The site was then closed with interrupted vertical mattress sutures with 3-0 Polysorb. The skin came together nicely. The region was cleansed again followed by placement of dermabond tape and cement. When this was dry, suitable tegaderm sponge dressing was placed. The patient was then taken back to PACU for postoperative care and monitoring.
--- NOTE | 2019-03-01 14:20 | RADIOLOGY REPORT (SQ) ---
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 FLUOROSCOPY TIME: 0.1 minute. 2 images saved to PACS. TECHNIQUE: Intra-operative images acquired during surgical procedure to evaluate progress. NUMBER OF IMAGES: 2 images. LIMITATIONS: None. FINDINGS: Images acquired during placement of spinal stimulator and electrodes. IMPRESSION: IMAGE(S) OBTAINED DURING PROCEDURE. COMMENT: Quality ID [id number]: Final reports for procedures using fluoroscopy that document radiation exp osure indices, or exposure time and number of fluorographic images (if radiation exposure indices are not available) Please consult full operative report of the attending physician for description of the procedure. TECHNICAL DOCUMENTATION: JOB ID: [id number] [employer]- All Rights Reserved Reading location - IP/workstation name: [email or web address]
--- NOTE | 2019-03-01 14:20 | RADIOLOGY REPORT (SQ) ---
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 FLUOROSCOPY TIME: 0.1 minute. 2 images saved to PACS. TECHNIQUE: Intra-operative images acquired during surgical procedure to evaluate progress. NUMBER OF IMAGES: 2 images. LIMITATIONS: None. FINDINGS: Images acquired during placement of spinal stimulator and electrodes. IMPRESSION: IMAGE(S) OBTAINED DURING PROCEDURE. COMMENT: Quality ID [id number]: Final reports for procedures using fluoroscopy that document radiation exp osure indices, or exposure time and number of fluorographic images (if radiation exposure indices are not available) Please consult full operative report of the attending physician for description of the procedure. TECHNICAL DOCUMENTATION: JOB ID: [id number] [employer]- All Rights Reserved Reading location - IP/workstation name: [email or web address]
== END 2019-03-01 12:00 | disposition home or self-care (01) ==
LOC: OROUT 07:29
PROVIDERS: ATTEND Pain Medicine Interventional Pain Medicine
DX: M54.16 Radiculopathy, lumbar region (principal); G89.4 Chronic pain syndrome; M51.86 Other intervertebral disc disorders, lumbar region; Z79.01 Long term (current) use of anticoagulants; M79.18 Myalgia, other site; F31.61 Bipolar disorder, current episode mixed, mild; M25.561 Pain in right knee; Z79.891 Long term (current) use of opiate analgesic; I25.2 Old myocardial infarction; I50.9 Heart failure, unspecified; I48.91 Unspecified atrial fibrillation; I20.9 Angina pectoris, unspecified; F17.210 Nicotine dependence, cigarettes, uncomplicated
CPT/HCPCS: 93005; 36415 ×2; 84132; 85027; 85610 ×2; 85730 ×2; 81001; 71046; 72100; 93010; 00300; 63685; J2250; J3490 ×3; J0690; J3010; J7060; J2704; 300